=== PATIENT | female | born 1975 | race Caucasian/White ===

== ENCOUNTER → 2017-05-21 07:15 | Outpatient (CLI) | payer OTHER, SELFPAY ==
[2017-05-21 07:48] LABS: Basophils # 0.1 K/mm3 (0-0.2); Basophils % 1.4 % (0.1-2.0); Eosinophils # 0.2 K/mm3 (0.0-0.4); Eosinophils % 3.2 % (0.1-12.0); Hematocrit 43.2 % (37.0-47.0); Hemoglobin 14.5 g/dL (12.2-16.2); Lymphocytes # 2.4 K/mm3 (0.7-4.5); Lymphocytes % 48.6 K/mm3 (10-50); Mean Corpuscular HGB Conc 33.5 g/dL (31.8-35.4); Mean Corpuscular Volume 83.7 fl (81-99); Mean Platelet Volume 7.1 fl (7.4-10.4); Monocytes # 0.2 K/mm3 (0.1-1.0); Monocytes % 4.2 % (1.7-9.3); Neutrophils # 2.1 K/mm3 (1.8-7.8); Neutrophils % 42.6 % (37.0-80.0); Platelet Count 351 K/mm3 (142-424); Red Blood Count 5.16 M/mm3 (4.20-5.40); Red Cell Distribution Width 12.5 % (11.5-17.5)
[2017-05-21 08:39] LABS: Alanine Aminotransferase 58 U/L (12-78); Albumin/Globulin Ratio 1.3 (1.1-1.8); Alkaline Phosphatase 84 U/L (46-116); Anion Gap 9.4 mEq/L (5-15); Aspartate Amino Transferase 29 U/L (15-37); Bilirubin,Total 0.5 mg/dL (0.2-1.0); Blood Urea Nitrogen 10 mg/dL (7-18); Calcium 8.4 mg/dL (8.5-10.1); Carbon Dioxide 30 mmol/L (21.0-32.0); Chloride 103 mmol/L (98-107); Chol/HDL Ratio 3.4 (1-3.5); Cholesterol 192 mg/dL (140-200); Creatinine,Serum 0.58 mg/dL (0.55-1.02); Estimated Glomerular Filt Rate 113 ml/min (>60); GFR (African American) 137 ML/MIN (>60); Globulin 3.2 gm/dl (1.3-3.2); Glucose 101 mg/dL (74-106); HDL Cholesterol 57 mg/dL (29-89); LDL Cholesterol 118 mg/dL (0-130); Potassium 3.4 mmoL/L (3.5-5.1); Sodium 139 mmol/L (136-145); Total Protein,Serum 7.2 gm/dL (6.4-8.2); Triglycerides 87 mg/dL (30-200); VLDL Cholesterol 17 mg/dL (0-40)
[2017-05-22 12:16] LABS: Hep B Surface Ab, Qual Non Reactive (.); Hepatitis C Antibody 0.2 s/co ratio (0.0-0.9)
== END ==
PROVIDERS: PCP Family Medicine; Visit Provider Dermatology
DX: L40.0 Psoriasis vulgaris (principal); Z79.899 Other long term (current) drug therapy; Z92.25 Personal history of immunosuppression therapy
CPT/HCPCS: 36415; 80053; 80061; 85025; 86706; 87380

== ENCOUNTER → 2017-06-30 07:31 | Outpatient (CLI) | payer OTHER, SELFPAY ==
[2017-06-30 07:57] LABS: Alanine Aminotransferase 39 U/L (12-78); Albumin Level 3.6 gm/dL (3.4-5.0); Albumin/Globulin Ratio 1.2 (1.1-1.8); Alkaline Phosphatase 65 U/L (46-116); Anion Gap 10.5 mEq/L (5-15); Aspartate Amino Transferase 16 U/L (15-37); Bilirubin,Total 0.4 mg/dL (0.2-1.0); Blood Urea Nitrogen 10 mg/dL (7-18); Calcium 8.1 mg/dL (8.5-10.1); Carbon Dioxide 31 mmol/L (21.0-32.0); Chloride 105 mmol/L (98-107); Chol/HDL Ratio 3.9 (1-3.5); Cholesterol 184 mg/dL (140-200); Creatinine,Serum 0.68 mg/dL (0.55-1.02); Estimated Glomerular Filt Rate 94 ml/min (>60); GFR (African American) 114 ML/MIN (>60); Globulin 3.1 gm/dl (1.3-3.2); Glucose 117 mg/dL (74-106); HDL Cholesterol 47 mg/dL (29-89); LDL Cholesterol 98 mg/dL (0-130); Potassium 3.5 mmoL/L (3.5-5.1); Sodium 143 mmol/L (136-145); Total Protein,Serum 6.7 gm/dL (6.4-8.2); Triglycerides 197 mg/dL (30-200); VLDL Cholesterol 39 mg/dL (0-40)
[2017-06-30 09:09] LABS: Basophils # 0.1 K/mm3 (0-0.2); Eosinophils # 0.1 K/mm3 (0.0-0.4); Eosinophils % 2.1 % (0.1-12.0); Hematocrit 41.5 % (37.0-47.0); Hemoglobin 13.9 g/dL (12.2-16.2); Lymphocytes # 2.8 K/mm3 (0.7-4.5); Mean Corpuscular HGB Conc 33.4 g/dL (31.8-35.4); Mean Corpuscular Hemoglobin 28.4 pg (27.0-31.2); Mean Platelet Volume 7.7 fl (7.4-10.4); Monocytes # 0.3 K/mm3 (0.1-1.0); Monocytes % 4.9 % (1.7-9.3); Neutrophils # 2.9 K/mm3 (1.8-7.8); Neutrophils % 46.9 % (37.0-80.0); Platelet Count 283 K/mm3 (142-424); Red Blood Count 4.88 M/mm3 (4.20-5.40); Red Cell Distribution Width 13.4 % (11.5-17.5); White Blood Count 6.2 K/mm3 (4.8-10.8)
== END ==
PROVIDERS: Visit Provider Dermatology
DX: L40.0 Psoriasis vulgaris (principal); L85.9 Epidermal thickening, unspecified; L20.9 Atopic dermatitis, unspecified; Z79.899 Other long term (current) drug therapy
CPT/HCPCS: 36415; 80053; 80061; 85025

== ENCOUNTER → 2017-07-18 08:30 | Outpatient (CLI) | payer OTHER, SELFPAY ==
[2017-07-18 08:42] LABS: Basophils # 0.1 K/mm3 (0-0.2); Basophils % 0.7 % (0.1-2.0); Eosinophils # 0.1 K/mm3 (0.0-0.4); Eosinophils % 1.7 % (0.1-12.0); Hematocrit 46.5 % (37.0-47.0); Hemoglobin 15.3 g/dL (12.2-16.2); Lymphocytes # 3.3 K/mm3 (0.7-4.5); Lymphocytes % 41.2 K/mm3 (10-50); Mean Corpuscular Hemoglobin 28.5 pg (27.0-31.2); Mean Corpuscular Volume 86.3 fl (81-99); Mean Platelet Volume 7.2 fl (7.4-10.4); Monocytes # 0.3 K/mm3 (0.1-1.0); Monocytes % 3.8 % (1.7-9.3); Neutrophils # 4.2 K/mm3 (1.8-7.8); Neutrophils % 52.5 % (37.0-80.0); Platelet Count 325 K/mm3 (142-424); Red Blood Count 5.38 M/mm3 (4.20-5.40); Red Cell Distribution Width 12.9 % (11.5-17.5); White Blood Count 7.9 K/mm3 (4.8-10.8)
[2017-07-18 10:14] LABS: Alanine Aminotransferase 48 U/L (12-78); Albumin Level 3.8 gm/dL (3.4-5.0); Albumin/Globulin Ratio 1.2 (1.1-1.8); Alkaline Phosphatase 75 U/L (46-116); Anion Gap 10.8 mEq/L (5-15); Aspartate Amino Transferase 23 U/L (15-37); Bilirubin,Total 0.2 mg/dL (0.2-1.0); Blood Urea Nitrogen 11 mg/dL (7-18); Calcium 8.6 mg/dL (8.5-10.1); Carbon Dioxide 32 mmol/L (21.0-32.0); Chloride 104 mmol/L (98-107); Chol/HDL Ratio 3.3 (1-3.5); Cholesterol 213 mg/dL (140-200); Creatinine,Serum 0.66 mg/dL (0.55-1.02); Estimated Glomerular Filt Rate 97 ml/min (>60); GFR (African American) 118 ML/MIN (>60); Globulin 3.3 gm/dl (1.3-3.2); Glucose 108 mg/dL (74-106); HDL Cholesterol 65 mg/dL (29-89); LDL Cholesterol 131 mg/dL (0-130); Potassium 3.8 mmoL/L (3.5-5.1); Sodium 143 mmol/L (136-145); Thyroid Stimulating Hormone 3.47 uIU/ml (0.358-3.740); Total Protein,Serum 7.1 gm/dL (6.4-8.2); Triglycerides 86 mg/dL (30-200); VLDL Cholesterol 17 mg/dL (0-40)
[2017-07-19 18:30] LABS: Vitamin D 25 Hydroxy 30.9 ng/mL (30.0-100.0)
== END ==
PROVIDERS: Visit Provider Family Medicine
DX: F41.1 Generalized anxiety disorder (principal); K58.1 Irritable bowel syndrome with constipation; L30.1 Dyshidrosis [pompholyx]
CPT/HCPCS: 36415; 80053; 80061; 82652; 84443; 85025

== ENCOUNTER → 2018-07-24 07:43 | Outpatient (CLI) | payer OTHER, SELFPAY ==
--- NOTE | 2018-07-24 07:48 | CT_ITS ---
CT abdomen pelvis wo con CLINICAL INDICATION: ITS.REASON: RT FLANK PAIN ORDERING PHYSICIAN: Nima Posada MD PATIENT AGE: 43 years COMPARISON: None TECHNIQUE: Axial images obtained with sagittal and coronal reformats. All CT scans at the facility use one or more dose reduction, viz: automated exposure control, ma/kV adjustment per patient size (including targeted exams where dose is matched to indication, i.e. head), or iterative reconstruction technique. PROCEDURE: Oral Contrast: None IV Contrast: None . FINDINGS: Lung bases are clear. There has been prior cholecystectomy. The liver, spleen, adrenal glands, and pancreas have an unremarkable unenhanced appearance. No renal or ureteral calculi. No hydronephrosis. Unremarkable appendix. Prior hysterectomy. No intestinal obstruction or free air. There are a few mildly prominent fluid-filled small bowel loops in the pelvis nonspecific but could be seen with enteritis.. No evidence of diverticulitis. No acute bony anomalies. IMPRESSION: 1. Possible enteritis. 2. Otherwise negative CT abdomen pelvis without contrast. No renal or ureteral calculi and unremarkable. Appendix
== END ==
PROVIDERS: PCP Family Medicine; Visit Provider Family Medicine
DX: R10.9 Unspecified abdominal pain (principal)
CPT/HCPCS: 74176

== ENCOUNTER → 2019-07-24 09:27 | Outpatient (CLI) | payer OTHER, SELFPAY ==
[2019-07-24 13:05] LABS: Chloride 98 mmol/L (98-107); Potassium 3.8 mmoL/L (3.5-5.1); Sodium 138 mmol/L (136-145)
[2019-07-24 13:08] LABS: Alanine Aminotransferase 30 U/L (12-78); Albumin Level 4.2 g/dl (3.5-5.0); Albumin/Globulin Ratio 1.7 (1.1-1.8); Alkaline Phosphatase 54 U/L (38-126); Anion Gap 12.8 mEq/L (5-15); Aspartate Amino Transferase 26 U/L (14-36); Bilirubin,Total 0.6 mg/dl (0.2-1.3); Blood Urea Nitrogen 11 mg/dl (7-17); Calcium 8.9 mg/dl (8.4-10.2); Carbon Dioxide 31 mmol/L (22.0-30.0); Cholesterol 217 mg/dl (140-200); Estimated Glomerular Filt Rate 133 ml/min (>60); GFR (African American) 161 ML/MIN (>60); Globulin 2.5 g/dL (1.3-3.2); Glucose 96 mg/dl (74-100); Total Protein,Serum 6.7 g/dl (6.3-8.2); Triglycerides 72 mg/dl (30-150); VLDL Cholesterol 14 mg/dL (0-40)
[2019-07-24 13:09] LABS: Chol/HDL Ratio 3.3 (1-3.5); HDL Cholesterol 66 mg/dl (40-60)
[2019-07-24 13:19] LABS: Direct LDL Cholesterol 130.74 mg/dL (100-129)
== END ==
PROVIDERS: Visit Provider Family Medicine
DX: F41.1 Generalized anxiety disorder (principal); Z13.220 Encounter for screening for lipoid disorders; Z79.899 Other long term (current) drug therapy
CPT/HCPCS: 36415; 80053; 80061; 84443

== ENCOUNTER 2020-07-08 13:31 | Emergency (ER) | payer BC, SELFPAY ==
[2020-07-08 13:40] VITALS: BP 141/77; PULSE 86; RESP 17; TEMP 36.6; O2SAT 98; BMI 30.2
[2020-07-08 14:03] LABS: Apearance,Urine Clear (Clear); Color,Urine Dark Yellow (Yellow)
[2020-07-08 14:04] LABS: Bilirubin,Urine Negative (Negative); Blood, Urine 3+ (Negative); Glucose,Urine (UA) Negative (Negative); Ketones,Urine Negative (Negative); Protein,Urine 3+ (Negative); UTC Leukocyte Esterase,Urine 3+ (Negative); UTC Nitrate,Urine Positive (Negative); Urobilinogen,Urine 1 EU/dl (0.2)
--- NOTE | 2020-07-08 14:15 | HMH.EDUTC ---
[facility] [place] Disposition Clinical Impression: UTI (urinary tract infection) Qualifiers: Urinary tract infection type: site unspecified Hematuria presence: with hematuria Qualified Code(s): N39.0 - Urinary tract infection, site not specified Disposition: Home, Self-Care Condition on Discharge: Good Instructions: Urinary Tract Infection, DI for Urinary Tract Infection (UTI), Phenazopyridine, Nitrofurantoin Additional Instructions: *Increase fluids. Water not Soda or Tea *Start antibiotic immediately and be sure to take as ordered for the FULL length of time although you should start to see improvement over the next 48 hours *Pyridium as needed Remember this medication will turn your urine [place]. This is normal but it will stain what ever it gets on *You should not use Pyridium for more than 48 hours. If so , follow up with your primary physician to review urine culture and ensure that antibiotic is adequate for infection *Be SURE to follow up anytime for new or worsening symptoms with your family doctor. AND in 48 hours for urine culture results with your family doctor, if you do not have a doctor then you may call back to the [facility] for urine culture results and further treatment. We do recommend that you choose and establish care with a Primary Care Physician. AND follow up with them in 10-14 days to repeat UA to ensure infection is resolved and blood no longer present *Be sure to let your PCP know that we sent urine cultures from the [facility] so they can follow up to ensure that you area the on the correct antibiotic Call your doctor office and make appointment for 48 hours (2 days from today) to follow up and get the results of your urine culture and further treatment Straight to the ER if any life threatening symptoms, unable to urinate fever, chills or abdominal pain Return if needed Prescriptions: Nitrofurantoin Monohyd/M-Cryst [Macrobid 100 mg Capsule] 100 mg PO BID 10 Days #20 cap Transmission Status: Received by [id number] Phenazopyridine HCl [Pyridium 200mg Tablet] 200 pow PO TID #6 tab Transmission Status: Received by [id number] Referrals: Nima Posada MD [Primary Care Provider] - As needed Time of Disposition: 14:26 Medical Decision Making - Brad Inquiry Pt receiving controlled substance: No Brad was queried for this patient: No Vital Signs: 07/08/20 13:40 07/08/20 14:40 Temperature 97.8 F 97.8 F Temperature Source Oral Pulse Rate 86 Pulse Rate [Right Brachial] 86 Respiratory Rate 17 17 Blood Pressure 141/77 H Blood Pressure [Right Arm] 141/77 H Blood Pressure Mean [Right Arm] 98 Blood Pressure Source [Right Arm] Automatic Cuff Blood Pressure Position [Right Arm] Sitting 02 Sat by Pulse Oximetry 98 Oxygen Delivery Method Room Air - Lab Data Lab results reviewed: Yes: I reviewed the patient's lab results. Lab Results 07/08/20 13:33: Urine Color Dark yellow, Urine Appearance Clear, Urine pH 7.0, Ur Specific [place] 1.030, Urine Protein 3+, Urine Glucose (UA) Negative, Urine Ketones Negative, Urine Blood 3+, Urine Nitrate Positive A, Urine Bilirubin Negative, Urine Urobilinogen 1, Ur Leukocyte Esterase 3+ A Orders (Tests/Meds): ED MEDICATIONS Discontinued Medications Generic Name Dose Route Start Last Admin Trade Name Freq PRN Reason Stop Dose Admin Ceftriaxone Sodium 1 gm 07/08/20 14:22 07/08/20 14:30 Ceftriaxone 1gm Vial IM 07/08/20 14:23 1 gm ONCE ONE Administration Protocol Lidocaine HCl 0 ml 07/08/20 14:22 07/08/20 14:30 Lidocaine 1% 5ml Pf Vial IM 07/08/20 14:23 2.1 ml ONCE ONE Administration ORDERS Category Date Time Status Urine Culture Stat Micro 07/08/20 13:47 Received Medical Decision Narrative: No rash noted tolerating medication well [facility] [place] HPI - General Stated complaint: Hurting in rght side/hurt to urinate Time Seen by Provider: 07/08/20 14:15 Mode of Arrival: Ambulatory Source of Inform
[2020-07-08 14:40] VITALS: BP 141/77; PULSE 86; RESP 17; TEMP 36.6; O2SAT 98
== END 2020-07-08 14:43 | disposition home or self-care (01) ==
PROVIDERS: Emergency Provider Nurse Practitioner; PCP Family Medicine
DX: N30.00 Acute cystitis without hematuria (principal); B96.20 Unspecified Escherichia coli [E. coli] as the cause of diseases classified elsewhere
CPT/HCPCS: 81003; 87086; 87088; 87186; 96372; 99202; G0463

== ENCOUNTER → 2021-08-29 11:02 | Outpatient (CLI) | payer BC, SELFPAY ==
--- NOTE | 2021-08-29 | CA_ITS ---
FINAL REPORT TECHNIQUE: Right lower extremity venous duplex was performed with augmentation and compression. CLINICAL HISTORY: Patient states she had a sharp shooting pain in her right calf as she came up steps 08/28/21. She noticed this morning that the right calf is swollen. She has tried icing, massage, and elevation with no relief. FINDINGS: Proper flow is seen throughout the deep venous system. There is no evidence of deep venous thrombosis. IMPRESSION: No deep venous thrombosis. Reviewed, Interpreted and Dictated by Glenn Barber MD Transcribed by Carlita Carver Authenticated by Glenn Barber MD on 08/29/2021 01:32:15 PM [facility]
== END ==
PROVIDERS: PCP Family Medicine; Visit Provider Nurse Practitioner Family
DX: M79.661 Pain in right lower leg (principal)
CPT/HCPCS: 93971

== ENCOUNTER → 2021-09-04 10:19 | Outpatient (CLI) | payer BC, SELFPAY ==
--- NOTE | 2021-09-04 10:23 | US_ITS ---
FINAL REPORT CLINICAL HISTORY: LEG PAIN, RIGHT FINDINGS: US EXTREMITY, NONVASCULAR, LIMITED, ANATOMIC SPECIFIC Limited sonographic images were obtained of the right calf. Possible edema in the musculature. No obvious hematoma noted. IMPRESSION: No obvious hematoma. Reviewed, Interpreted and Dictated by Ludwig Cohen III, MD Transcribed by Yrn Venegas Authenticated by Ludwig Cohen III, MD on 09/04/2021 12:21:13 PM [facility]
== END ==
PROVIDERS: PCP Family Medicine; Visit Provider Nurse Practitioner Family
DX: M79.604 Pain in right leg (principal)
CPT/HCPCS: 76882

== ENCOUNTER 2022-02-10 08:12 | Emergency (ER) | payer BC, SELFPAY ==
[2022-02-10 08:27] VITALS: BP 151/79; PULSE 74; RESP 18; TEMP 36.9; O2SAT 96; BMI 29.1
[2022-02-10 08:37] LABS: UTC Strep Screen (Rapid) Negative (Negative)
--- NOTE | 2022-02-10 08:52 | EXP.UTC ---
Discharge Plan Disposition Patient Disposition: Home, Self-Care Condition: Good Prescriptions Prescriptions: New amoxicillin [amoxicillin] 500 mg tablet 500 mg PO TID 10 Days Qty: 30 0RF benzonatate [benzonatate] 100 mg capsule 100 mg PO TIDP PRN (Reason: Cough) Qty: 30 0RF methylprednisolone 4 mg Tablets,Dose Pack 4 mg PO DIRECTED Qty: 21 0RF No Action loratadine-pseudoephedrine 1 EACH tablet extended release 24 hr 1 tab PO DAILY Label Comments: TAKE 1 TABLET BY MOUTH ONCE DAILY FOR 30 DAYS escitalopram oxalate 20 MG tablet 20 mg PO DAILY lubiprostone 24 MCG capsule 24 mcg PO BID phenazopyridine 200 MG tablet 200 pow PO TID Qty: 6 0RF nitrofurantoin monohyd/m-cryst 100 MG capsule 100 mg PO BID 10 Days Qty: 20 0RF Referrals Follow up/Referrals: Nima Posada MD [Primary Care Provider] - See instructions Activity Restrictions/Add. Instructions Additional Instructions/Restrictions: Drink plenty of fluids. Take tylenol or ibuprofen for pain or fever. Take the medications as directed. Follow up with your regular doctor. GO TO THE ER FOR ANY WORSENING SYMPTOMS Clinical Impressions Clinical Impression: Pharyngitis Instructions Patient Instructions: Strep Throat, DI for Strep Throat Discharge ED Provider: Evaristo Patel [facility] General Stated complaint: sore throat, bilateral ear ache Mode of Arrival: Ambulatory Source of Information: Patient Limitations: No Limitations Time Seen by Provider: 02/10/22 08:59 Description of Symptoms (Recalled from Triage Doc. by RN): pt comes in with c/o sore throat and bilateral ear ache. pt states r ear is worse. symptoms begin friday HEENT Symptoms (Recalled from RN notes): Yes Resp Symptoms (Recalled from RN notes): No Skin Symptoms (Recalled from RN notes): No MS Symptoms (Recalled from RN notes): No Functional Status (Recalled from RN notes): n/a History of Present Illness Provider Complaint: She c/o sore throat for the past 2 days. Related Data Home Medications Medication Instructions Recorded Confirmed escitalopram oxalate 20 mg tablet 20 mg PO DAILY Anxiety 07/08/20 07/08/20 loratadine-pseudoephedrine ER 10 1 tab PO DAILY Allergy symptoms 07/08/20 07/08/20 mg-240 mg tablet,extended [id number] lubiprostone 24 mcg capsule 24 mcg PO BID Anxiety 07/08/20 07/08/20 Previous Rx's Medication Instructions Recorded nitrofurantoin 100 mg PO BID 10 days #20 caps 07/08/20 monohydrate/macrocrystals 100 mg capsule phenazopyridine 200 mg tablet 200 pow PO TID #6 tabs 07/08/20 amoxicillin 500 mg tablet 500 mg PO TID 10 days #30 tabs 02/10/22 benzonatate 100 mg capsule 100 mg PO TIDP PRN Cough #30 caps 02/10/22 methylprednisolone 4 mg tablets in 4 mg PO DIRECTED #21 tabs 02/10/22 a dose pack Allergies Allergy/AdvReac Type Severity Reaction Status Date / Time No Known Allergies Allergy Verified 02/10/22 08:30 Worker's Comp Is this a Worker's Comp case?: No PFSH PFS Social History Smoking Status: Never smoker alcohol intake: never current occupational status: other Travel in the last 8 weeks: None ROS Obtained: Yes All systems reviewed & no additional complaints except as documented Constitutional Constitutional: Reports chills and Reports fever(s) Eyes Eyes: Denies eye discharge ENT Ears, Nose, Mouth, and Throat: Reports as per HPI Cardiovascular Cardiovascular: Denies chest pain Respiratory Respiratory: Denies chest congestion and Reports cough Gastrointestinal Gastrointestingal: Reports nausea; Denies abdominal pain, constipation, cramping, diarrhea or vomiting Musculoskeletal Musculoskeletal: Denies arthralgias Integumentary/Breasts Skin/Breast: Denies rash Neurologic Neurologic: Denies paresthesias Physical Exam General General appearance: alert and in no apparent distress Head Head exa
[2022-02-10 09:07] VITALS: BP 151/79; PULSE 74; RESP 18; TEMP 36.9
== END 2022-02-10 09:13 | disposition home or self-care (01) ==
PROVIDERS: Emergency Provider Nurse Practitioner Family; PCP Family Medicine
DX: J02.9 Acute pharyngitis, unspecified (principal)
CPT/HCPCS: 87880; 99212; G0463

== ENCOUNTER 2022-04-30 11:00 | Emergency (ER) | payer BC, SELFPAY ==
[2022-04-30] VITALS (9 sets, daily range): BP systolic 154–172; BP diastolic 74–85; PULSE 60–71; RESP 16–18; TEMP 36.8; O2SAT 96–99; BMI 34.3
--- NOTE | 2022-04-30 11:02 | ECG_ITS ---
APPROVED REPORT Exam: Resting ECG HR:82 bpm ECG Measurements Heart Rate 82 AXES AL 137 P 43 QRSd 108 QRS 42 QT 376 T 23 QTc 415 Conclusion SINUS RHYTHM INDETERMINATE AXIS INCOMPLETE RIGHT BUNDLE BRANCH BLOCK [90+ ms QRS DURATION, TERMINAL R IN V1/V2, 40+ ms S IN I/aVL/V4/V5/V6] BORDERLINE ECG UNCONFIRMED REPORT Electronically signed by : José Arriaga MD 04/30/2022 20:09:03
--- NOTE | 2022-04-30 11:08 | HMH.EDGENADL ---
Discharge Plan Disposition Patient Disposition: Home, Self-Care Condition: Good Prescriptions Prescriptions: New hydrochlorothiazide 25 mg tablet 25 mg PO DAILY Qty: 14 0RF No Action loratadine-pseudoephedrine 1 EACH tablet extended release 24 hr 1 tab PO DAILY Label Comments: TAKE 1 TABLET BY MOUTH ONCE DAILY FOR 30 DAYS escitalopram oxalate 20 MG tablet 20 mg PO DAILY lubiprostone 24 MCG capsule 24 mcg PO BID phenazopyridine 200 MG tablet 200 pow PO TID Qty: 6 0RF nitrofurantoin monohyd/m-cryst 100 MG capsule 100 mg PO BID 10 Days Qty: 20 0RF amoxicillin [amoxicillin] 500 mg tablet 500 mg PO TID 10 Days Qty: 30 0RF benzonatate [benzonatate] 100 mg capsule 100 mg PO TIDP PRN (Reason: Cough) Qty: 30 0RF methylprednisolone 4 mg Tablets,Dose Pack 4 mg PO DIRECTED Qty: 21 0RF Referrals Follow up/Referrals: Provider,Referral, MD [Referring] - See instructions Activity Restrictions/Add. Instructions Additional Instructions/Restrictions: Hydrochlorothiazide as prescribed for blood pressure. Additional instructions for CHEST PAIN: See your physician as soon as possible for further evaluation. Return immediately if worsening chest pain, vomiting, shortness of breath, fever, coughing of blood. Clinical Impressions Clinical Impression: Atypical chest pain, Hypertension Instructions Patient Instructions: DI for Atypical Chest Pain, DI for High Blood Pressure Discharge ED Provider: Fareed Briggs General Adult HPI General Chief complaint: Chest Pain Stated complaint: CP Time Seen by Provider: 04/30/22 11:37 History of Present Illness HPI narrative: States she has not felt well since Friday 4 days ago. Initially thought it might be sinuses. Her blood pressure has been elevated. She has had chest pain going into her left back and down her left arm. She has had shortness of breath. She also thinks symptoms might be related to her anxiety. She does not have a prior history of hypertension, diabetes, or hyperlipidemia. She has a family history of heart disease in mother and grandmother. No prior cardiac work-up. She is a non-smoker. Although not diagnosed with hypertension, she says that her blood pressure has been running high, she had a checked it at work a couple of months ago and it was 176 systolic. They recommended she get follow-up, but she has not yet followed up for that. She has an appointment scheduled for follow-up with Dr. Posada next week. Related Data Home Medications Medication Instructions Recorded Confirmed escitalopram oxalate 20 mg tablet 20 mg PO DAILY Anxiety 07/08/20 07/08/20 loratadine-pseudoephedrine ER 10 1 tab PO DAILY Allergy symptoms 07/08/20 07/08/20 mg-240 mg tablet,extended [id number] lubiprostone 24 mcg capsule 24 mcg PO BID Anxiety 07/08/20 07/08/20 Previous Rx's Medication Instructions Recorded nitrofurantoin 100 mg PO BID 10 days #20 caps 07/08/20 monohydrate/macrocrystals 100 mg capsule phenazopyridine 200 mg tablet 200 pow PO TID #6 tabs 07/08/20 amoxicillin 500 mg tablet 500 mg PO TID 10 days #30 tabs 02/10/22 benzonatate 100 mg capsule 100 mg PO TIDP PRN Cough #30 caps 02/10/22 methylprednisolone 4 mg tablets in 4 mg PO DIRECTED #21 tabs 02/10/22 a dose pack hydrochlorothiazide 25 mg tablet 25 mg PO DAILY #14 tabs 04/30/22 Allergies Allergy/AdvReac Type Severity Reaction Status Date / Time No Known Allergies Allergy Verified 02/10/22 08:30 [facility] Disclaimer: The information contained in this section may have been updated after the patient was seen, as this information can be updated by other users. Social History Smoking Status: Never smoker alcohol intake: never current occupational status: other Travel in the last 8 weeks: None ROS Obtained: Yes Systems reviewed as appropriate & no additional c
--- NOTE | 2022-04-30 11:10 | XR_ITS ---
FINAL REPORT CLINICAL HISTORY: CHEST PAIN COMPARISON: 11/2016 FINDINGS: The heart size is normal. The mediastinum is within normal limits. There is no acute cardiopulmonary process. There is no pleural effusion. There is no pneumothorax. The bony thorax is intact. IMPRESSION: No acute cardiopulmonary process. Reviewed, Interpreted and Dictated by Ludwig Cohen III, MD Transcribed by Yrn Venegas Authenticated and . [facility]
[2022-04-30 11:21] LABS: Chloride 99 mmol/L (98-107); Sodium 139 mmol/L (136-145)
[2022-04-30 11:22] LABS: Potassium 3.5 mmoL/L (3.5-5.1)
[2022-04-30 11:25] LABS: Anion Gap 12.5 mEq/L (5-15); Blood Urea Nitrogen 9 mg/dl (7-17); Calcium 9.9 mg/dl (8.4-10.2); Carbon Dioxide 31 mmol/L (22.0-30.0); Creatinine Clearance Estimated 162 mL/min (50-200); Estimated Glomerular Filt Rate 106 ml/min (>60); GFR (African American) 129 ML/MIN (>60); Glucose 202 mg/dl (74-100)
[2022-04-30 11:27] LABS: Basophils # 0.2 K/mm3 (0-0.2); Basophils % 2.2 % (0.1-2.0); Eosinophils # 0.2 K/mm3 (0.0-0.4); Eosinophils % 2.2 % (0.1-12.0); Hematocrit 44.9 % (37.0-47.0); Hemoglobin 15.2 g/dL (12.2-16.2); Lymphocytes # 3.3 K/mm3 (0.7-4.5); Lymphocytes % 44.4 % (10-50); Mean Corpuscular HGB Conc 33.9 g/dL (31.8-35.4); Mean Corpuscular Hemoglobin 28.9 pg (27.0-31.2); Mean Corpuscular Volume 85.3 fl (81-99); Mean Platelet Volume 7.5 fl (7.4-10.4); Monocytes # 0.2 K/mm3 (0.1-1.0); Monocytes % 3.2 % (1.7-9.3); Neutrophils # 3.5 K/mm3 (1.8-7.8); Neutrophils % 48.1 % (37.0-80.0); Platelet Count 294 K/mm3 (142-424); Red Blood Count 5.27 M/mm3 (4.20-5.40); Red Cell Distribution Width 12.9 % (11.5-17.5); White Blood Count 7.3 K/mm3 (4.8-10.8)
[2022-04-30 11:38] LABS: Troponin I < 0.01 ng/ml (0.00-0.034)
--- NOTE | 2022-04-30 11:44 | CA_ITS ---
APPROVED REPORT EXAM: Comprehensive 2D, Doppler, and color-flow Echocardiogram Forensics Analyst: Silvia Condon RT(R) Ht: 5 ft 4 in Wt: 195lbs BSA: 1.94 BP: 163/85 mmHg Indications: HTN, CP, palpitations, SOB, obesity 2D Dimensions LVOT 1.92 cm (M/F) 1.5-2.5 LVEF (Mendoza's) 60.90 % F: 54 - 74 LV Volume 97.50 mL F: 46 - 106 LV Volume Index 50.26 mL/m2 F: 29 - 61 M-Mode Dimensions RVDd 2.59 cm (0.9-2.6) LA Diam 3.45 cm (1.9-4.0) LVDd 4.54 cm (3.5-5.7) Ao Diam 2.60 cm (2.0-3.7) LVDs 3.18 cm (3.5-5.7) IVSd 0.89 cm (0.6-1.1) PWd 0.81 cm (0.6-1.1) EF (Teich) 57.30% FS 30.00% EDV (Teich) 94.40 mL ESV (Teich) 40.30 mL LV Diastology E Decel Time 150.00 (160-240 msec) E/A Ratio 1.0 MED E' 7.80 (< 7 cm/sec) E'/MED E' Ratio 10.23 (>14) LAT E' 9.70 (<10 cm/sec) E/LAT E' Ratio 8.23 (>14) Mitral Valve MV E Max Abdirashid. 80.00 (40-130 cm/s) MV A Velocity 79.00 (40-130 cm/s) E/A Ratio 1.02 MV Decel. Time 150.00 (160-240 ms) MV PHT 44.00 ms Left Ventricle Left atrium is mildly enlarged, left ventricle is normal size, estimated ejection fraction 55% with no regional wall motion abnormality, diastolic parameters are inconclusive. Right Ventricle Right atrium and right ventricle are normal size and contractility. Aortic Valve Aortic valve is minimally thickened and fibrosed there is no aortic stenosis aortic insufficiency. Mitral Valve Mitral valve is grossly normal, there is trace mitral regurgitation. Tricuspid Valve Tricuspid grossly normal, there is trace tricuspid regurgitation, tricuspid regurgitation jet velocity is inadequate for calculation of the right ventricular systolic pressure. Pulmonic Valve Pulmonic valve is poorly visualized. Great Vessels Aortic root is normal size. Inferior vena cava is normal size with normal inspiratory collapse. Pericardium No significant pericardial effusion noted. Conclusion 1. Normal left ventricular size, estimated ejection fraction 55% with no regional wall motion abnormality, diastolic parameters are inconclusive. 2. Trace mitral and tricuspid regurgitation. 3. No significant pericardial effusion. 4. Inferior vena cava is normal size with normal inspiratory collapse. Electronically signed by : Fausto Frias MD 04/30/2022 16:58:22
--- NOTE | 2022-04-30 11:50 | PC.NURSE ---
Spoke with Silvia regarding ECHO order; pt is in gown.
[2022-04-30 11:55] LABS: Coronavirus 19, PCR Not Detected (NotDetected); Influenza A, PCR Not Detected (NotDetected); Influenza B, PCR Not Detected (NotDetected)
[2022-04-30 12:05] LABS: D-Dimer 0.47 ug/mL (0.0-0.5)
[2022-04-30 12:11] LABS: NT Pro Brain Natriuretic Pep. 62.2 pg/mL (0-125)
--- NOTE | 2022-04-30 12:15 | PC.NURSE ---
1215 PT RESTING IN BED, FAMILY AT BEDSIDE. NO NEEDS AT THIS TIME
--- NOTE | 2022-04-30 13:09 | PC.NURSE ---
2ND TROP SENT TO LAB
[2022-04-30 13:40] LABS: Troponin I < 0.01 ng/ml (0.00-0.034)
--- NOTE | 2022-04-30 13:56 | PC.NURSE ---
ROUNDED ON PT, FAMILY AT BEDSIDE. NO NEEDS VOICED. CALL LIGHT WITHIN REACH
== END 2022-04-30 14:10 | disposition home or self-care (01) ==
PROVIDERS: Emergency Provider Emergency Medicine; PCP Family Medicine
DX: R07.89 Other chest pain (principal); M54.9 Dorsalgia, unspecified; M79.602 Pain in left arm; R05.9 Cough, unspecified; Z20.822 Contact with and (suspected) exposure to COVID-19; I10 Essential (primary) hypertension; I45.10 Unspecified right bundle-branch block; E78.5 Hyperlipidemia, unspecified; E11.9 Type 2 diabetes mellitus without complications; Z79.82 Long term (current) use of aspirin; Z79.899 Other long term (current) drug therapy; Z82.49 Family history of ischemic heart disease and other diseases of the circulatory system
CPT/HCPCS: 71045; 80048; 83880; 84484; 85025; 85378; 93005; 93306; 99285; C9803; U0003; U0005

== ENCOUNTER → 2022-10-10 23:00 | Outpatient (CLI) | payer BC, SELFPAY | PROVIDERS: PCP Student in an Organized Health Care Education/Training Program; Visit Provider Student in an Organized Health Care Education/Training Program | DX: N39.0 Urinary tract infection, site not specified (principal); R31.9 Hematuria, unspecified; B95.2 Enterococcus as the cause of diseases classified elsewhere | CPT/HCPCS: 87086; 87088; 87186 ==

== ENCOUNTER → 2022-10-23 14:46 | Outpatient (CLI) | payer BC, SELFPAY ==
--- NOTE | 2022-10-23 14:46 | CT_ITS ---
FINAL REPORT TECHNIQUE: Axial images through the abdomen and pelvis were performed without contrast. This study was performed with techniques to keep radiation doses as low as reasonably achievable, (ALARA). Individualized dose reduction techniques using automated exposure control or adjustment of mA and/or kV according to the patient's size were employed. CLINICAL HISTORY: R flank pain, hematuria COMPARISON: None FINDINGS: Abdomen: The lung bases are clear. The liver parenchyma is homogeneous. The gallbladder is absent. The spleen, pancreas, adrenals and kidneys are unremarkable. There is no evidence of renal stone or obstruction. Pelvis: There is a low-lying cecum. The urinary bladder is unremarkable. The appendix is unremarkable. There is no pelvic mass or inflammation. IMPRESSION: No evidence of renal stone or obstruction. Reviewed, Interpreted and Dictated by Glenn Barber MD Transcribed by Helen Peguero Authenticated and [facility]
== END ==
PROVIDERS: PCP Student in an Organized Health Care Education/Training Program; Visit Provider Student in an Organized Health Care Education/Training Program
DX: R10.9 Unspecified abdominal pain (principal); R31.9 Hematuria, unspecified
CPT/HCPCS: 74176

== ENCOUNTER 2024-01-07 17:58 | Emergency (ER) | payer BC, SELFPAY ==
[2024-01-07 18:10] VITALS: BP 128/65; PULSE 71; RESP 13; TEMP 36.7; O2SAT 99; BMI 27.8
[2024-01-07 18:19] LABS: Microscopic, Urine URINE MICROSCOPIC (MICROSCOPIC)
[2024-01-07 18:22] LABS: Appearance,Urine CLEAR (Clear); Bilirubin,Urine Negative (Negative); Blood, Urine 1+ (Negative); Color,Urine YELLOW (Yellow); Glucose,Urine (UA) Negative (Negative); Ketones,Urine Negative (Negative); Leukocyte Esterase,Urine 3+ (Negative); Nitrate,Urine Negative (Negative); Protein,Urine Negative (Negative); Urobilinogen,Urine 0.2 EU/dl (0.2)
--- NOTE | 2024-01-07 18:32 | CT_ITS ---
PROCEDURE INFORMATION: Exam: CT Abdomen And Pelvis Without Contrast Exam date and time: 01/07/2024 7:05 PM Age: 48 years old Clinical indication: Abdominal pain; Additional info: Flank pain TECHNIQUE: Imaging protocol: Computed tomography of the abdomen and pelvis without contrast. Radiation optimization: All CT scans at this facility use at least one of these dose optimization techniques: automated exposure control; mA and/or kV adjustment per patient size (includes targeted exams where dose is matched to clinical indication); or iterative reconstruction. COMPARISON: CT ABDOMEN PELVIS WO CON 10/23/2022 2:55 PM FINDINGS: Lungs: Granulomatous calcification in the left lower lobe. Lung bases otherwise clear. Heart: Heart size normal. Coronary arteries: Mild coronary artery calcification. Esophagus: The visualized distal esophagus is largely contracted without gross abnormality. Liver: Normal contour. No mass lesions. No intrahepatic biliary ductal dilatation. Gallbladder and biliary ducts: Prior cholecystectomy with no significant dilatation of the common bile duct. Pancreas: Normal. No inflammatory changes or ductal dilation. Spleen: Normal. No splenomegaly. Adrenal glands: Normal. No adrenal mass. Kidneys and ureters: No acute abnormalities. No hydronephrosis or hydroureter. No urinary tract stones are identified. Stomach and bowel: The stomach is unremarkable. The small bowel is nondilated with no gross abnormality. There is a moderate amount of stool distributed throughout the colon suggesting constipation. Appendix: The appendix is normal in caliber and demonstrates no evidence of appendicitis. Intraperitoneal space: 7 mm chronic probable dropped stone in the cul-de-sac again noted. No peritoneal free fluid or air. Vasculature: No acute process. No abdominal aortic aneurysm. Moderate calcific atherosclerosis. Lymph nodes: No adenopathy. Urinary bladder: Unremarkable as visualized. Reproductive: Prior hysterectomy. Bones/joints: No acute osseous abnormalities. Soft tissues: No acute soft tissue abnormalities. IMPRESSION: 1. There is a moderate amount of stool distributed throughout the colon suggesting constipation. 2. No urolithiasis or hydronephrosis. 3. Additional nonemergent findings detailed above.
[2024-01-07 18:33] LABS: Bacteria,Urine 4+ /lpf; WBC,Urine TNTC #/hpf (0-3)
[2024-01-07] MEDS: LACTATED RINGERS 1000ML 1,000 ML 999 ML IV (18:39)
[2024-01-07] MEDS: KETOROLAC 30MG/ML VIAL 15 MG IV (18:39)
[2024-01-07] MEDS: ACETAMINOPHEN 500MG TAB 1000 MG PO (18:39)
--- NOTE | 2024-01-07 18:41 | ED_ITS ---
Discharge Plan Disposition Patient Disposition: Home, Self-Care Condition: Good Prescriptions Prescriptions: New polyethylene glycol 3350 [Miralax] 17 gram/dose powder 17 g PO DAILY Qty: 510 0RF nitrofurantoin monohyd/m-cryst [Macrobid] 100 mg capsule 100 mg PO BID 5 Days Qty: 10 0RF Rx Instructions: must administer with a meal/food sennosides [senna] 8.6 mg tablet 8.6 mg PO HS PRN (Reason: constipation) Qty: 30 0RF ondansetron HCl 4 mg tablet 4 mg PO Q8H PRN (Reason: nausea and vomiting) 4 Days Qty: 12 0RF phenazopyridine [Pyridium] 200 mg tablet 200 mg PO Q8H PRN (Reason: pain) Qty: 10 0RF fluconazole [Diflucan] 200 mg tablet 200 mg PO ONCE Qty: 1 0RF No Action losartan-hydrochlorothiazide 50-12.5 mg tablet 1 tab PO DAILY escitalopram oxalate 20 MG tablet 20 mg PO DAILY Referrals Follow up/Referrals: Nima Posada MD [Primary Care Provider] - See instructions Activity Restrictions/Add. Instructions Additional Instructions/Restrictions: You were evaluated in the emergency department today. We sent in multiple prescriptions for you, including MiraLAX and senna for bowel cleanout, Zofran to have on hand as needed for nausea and vomiting, Pyridium for as needed use for urinary burning, and an antibiotic. Please complete the full course of antibiotic as prescribed. Take Tylenol and ibuprofen at home as needed for pain. Follow-up closely with your primary care provider. Return to the emergency department for new or worsening symptoms. Clinical Impressions Clinical Impression: UTI (urinary tract infection), Constipation Stand Alone Forms Stand Alone Forms: Work/School Release Instructions Patient Instructions: DI for Urinary Tract Infection (UTI), DI for Constipation Print Language Print Language: Arabic Discharge ED Provider: Ksenia Zaragoza General Adult HPI General Chief complaint: Urogenital-Female Stated complaint: Poss UTI Time Seen by Provider: 01/07/24 18:14 Mode of Arrival: Ambulatory Source of Information: Patient Limitations: No Limitations Description of Symptoms (Recalled from ER Triage Doc. by RN): pt presents to ED with c/o frequent urination. pt reports a little bit of burning. pt reports symptoms began today. History of Present Illness HPI narrative: This patient is a 48-year-old female with history of IBS presenting to the emergency department for evaluation with concern for urinary frequency, dysuria, urinary incontinence, and right flank pain that started today. No fevers, vomiting, or other concerns noted. She does note that she has a history of IBS and when she gets backed up, she has similar symptoms. Related Data Home Medications ?Medication ?Instructions ?Recorded ?Confirmed escitalopram oxalate 20 mg tablet 20 mg PO DAILY Anxiety 07/08/20 01/29/23 losartan 50 mg-hydrochlorothiazide 1 tab PO DAILY 01/15/23 01/29/23 12.5 mg tablet Previous Rx's ?Medication ?Instructions ?Recorded fluconazole 200 mg tablet 200 mg PO ONCE #1 tab 01/07/24 (Diflucan) nitrofurantoin 100 mg PO BID 5 days #10 caps 01/07/24 monohydrate/macrocrystals 100 mg capsule (Macrobid) ondansetron HCl 4 mg tablet 4 mg PO Q8H PRN nausea and 01/07/24 vomiting 4 days #12 tabs phenazopyridine 200 mg tablet 200 mg PO Q8H PRN pain #10 tabs 01/07/24 (Pyridium) polyethylene glycol 3350 17 17 g PO DAILY #510 grams 01/07/24 gram/dose oral powder (Miralax) sennosides 8.6 mg tablet (senna) 8.6 mg PO HS PRN constipation #30 01/07/24 tabs Allergies Allergy/AdvReac Type Severity Reaction Status Date / Time No Known Allergies Allergy Verified 01/29/23 15:44 PFSH [facility] Disclaimer: The information contained in this section may have been updated after the patient was seen, as this information can be updated by other users. Medical History Generalized anxiety disorder Hypertension Pharyngitis UTI (urinary tract infection) Surgical History No significant past surgical history Family History Other No significant family history Social History Smoking Status: Never smoker alcohol intake: never current occupational status: other Travel in the last 8 weeks: None ROS Obtained: Yes All systems reviewed & no additional complaints except as documented Physical Exam General General appearance: alert and in no apparent distress Head Head exam: atraumatic and normocephalic Eye Eye exam: Present normal appearance, PERRL and EOMI ENT ENT exam: Present normal exam, normal oropharynx, mucous membranes moist and normal external ear exam Neck Neck exam: Present normal inspection, full ROM and trachea midline; Absent tenderness Chest Chest inspection: Present normal inspection and symmetric chest wall rise; Absent tenderness Respiratory Respiratory exam: Present normal lung sounds bilaterally; Absent respiratory distress, wheezes, stridor or accessory muscle use Cardiovascular Cardiovascular exam: Present regular rate and normal rhythm Abdominal Exam Abdominal exam: Present soft; Absent distention, tenderness or guarding Extremities Exam Extremities exam: Present normal inspection, full ROM and normal capillary refill; Absent tenderness or edema Back Exam Back exam: Present full ROM and CVA tenderness (R) Neurological Exam Neurological exam: Present alert, oriented X3, CN II-XII intact and normal gait; Absent motor sensory deficit Psychiatric Psychiatric exam: Present normal affect and normal mood Skin Skin exam: Present warm and dry Medical Decision Making Medical Records Medical records reviewed: Yes I reviewed the patient's medical records. Brad Inquiry Pt receiving controlled substance: No Vital Signs: 01/07/24 18:10 01/07/24 20:33 Temperature 98.1 F 98 F Temperature Source Oral Oral Pulse Rate 60 Pulse Rate [Left Radial] 71 Respiratory Rate 13 16 Blood Pressure 140/71 Blood Pressure [Right Arm] 128/65 Blood Pressure Mean [Right Arm] 86 Blood Pressure Source Automatic Cuff Blood Pressure Position Sitting 02 Sat by Pulse Oximetry 99 Oxygen Delivery Method Room Air Room Air Lab Data Lab results reviewed: Yes I reviewed the patient's lab results. Lab Results 01/07/24 18:15: Urine Color Yellow, Urine Appearance Clear, Urine pH 6.0, Ur Specific [place] 1.020, Urine Protein Negative, Urine Glucose (UA) Negative, Urine Ketones Negative, Urine Blood 1+ A, Urine Nitrate Negative, Urine Bilirubin Negative, Urine Urobilinogen 0.2, Ur Leukocyte Esterase 3+ A, Urine RBC 10-20, Urine WBC Tntc, Ur Squamous Epith Cells 5-10, Urine Bacteria 4+ 01/07/24 18:31: WBC 9.2, RBC 4.50, Hgb 13.7, Hct 40.7, MCV 90.4, MCH 30.4, MCHC 33.6, RDW 13.1, Plt Count 262, MPV 8.1, Neut % (Auto) 64.0, Lymph % (Auto) 30.0, [place] % (Auto) 3.2, Eos % (Auto) 1.7, Baso % (Auto) 1.1, Neut # (Auto) 5.9, Lymph # (Auto) 2.8, [place] # (Auto) 0.3, Eos # (Auto) 0.2, Baso # (Auto) 0.1, Sodium 137, Potassium 3.1 L, Chloride 101, Carbon Dioxide 32 H, Anion Gap 7.1, BUN 17, Creatinine 0.60, Estimated Creat Clear 130, Estimated GFR 106, Est GFR ( Amer) 128, Glucose 119 H, Calcium 8.7, Total Bilirubin 0.6, AST 40 H, ALT 45, Alkaline Phosphatase 55, Total Protein 6.9, Albumin 4.3, Globulin 2.6, Albumin/Globulin Ratio 1.7 01/07/24 18:31 01/07/24 18:31 Orders (Tests/Meds): ED MEDICATIONS Discontinued Medications Generic Name Dose Route Start Last Admin Trade Name Freq PRN Reason Stop Dose Admin Acetaminophen 1,000 mg 01/07/24 18:33 01/07/24 18:39 Acetaminophen 500mg Tab PO 01/07/24 18:34 1,000 mg ONCE ONE Administration Lactated Ringer's 1,000 mls @ 999 mls/hr 01/07/24 18:33 01/07/24 18:39 Lactated Ringer's 1000 Ml Bag IV 01/07/24 19:33 999 mls/hr .Q1H1M ONE Administration Ketorolac Tromethamine 15 mg 01/07/24 18:33 01/07/24 18:39 Ketorolac 30mg/Ml Vial IV 01/07/24 18:34 15 mg ONCE ONE Administration Nitrofurantoin Macrocrystals 100 mg 01/07/24 20:04 01/07/24 20:33 Nitrofurantoin 100mg Capsule PO 01/07/24 20:05 100 mg ONCE ONE Administration Potassium Chloride 40 meq 01/07/24 19:28 01/07/24 19:41 Potassium Chloride 20meq Tab PO 01/07/24 19:29 40 meq ONCE ONE Administration ORDERS Category Date Time Status CT abdomen pelvis wo con Stat Cat Scan 01/07/24 18:32 Completed CBC w/Auto Diff [Complete Blood Count Auto Diff] Stat Lab 01/07/24 18:31 Completed CMP [Comprehensive Metabolic Panel] Stat Lab 01/07/24 18:31 Completed UA [Urinalysis and Microscopic] Stat Lab 01/07/24 18:15 Completed Urine Culture Stat Micro 01/07/24 18:15 Received Medical Decision Narrative: In summary, this patient is a 48-year-old female presenting to the Emergency Department for evaluation of right flank pain, urinary frequency, dysuria. Differential diagnoses considered include but are not limited to cystitis, pyelonephritis, ureterolithiasis, colitis, constipation. Ruling out the most morbid conditions drove assessment. On exam, the patient is sitting upright in bed in no acute distress and is very well-appearing. Abdominal exam is benign. Workup included CBC, CMP, urinalysis, CT abdomen and pelvis without IV contrast. She was given a bolus of IV fluids as well as IV Toradol and oral Tylenol for symptomatic improvement. I independently interpreted CT scan prior to the radiologist read and noted no obvious ureteral stone, but she does have constipation. Please see their read for final interpretation. Labs were obtained that demonstrated concerns for urinary tract infection without significant leukocytosis, ABEL, or other concerns. She does have hypokalemia for which oral replacement was ordered. On reassessment, patient had good improvement after administration of interventions above. At this time, I feel that she is appropriate for discharge home with treatment of constipation and urinary tract infection. Prescriptions were sent for antibiotics as well as bowel cleanout. Strict return precautions were given and she was discharged with instructions for close outpatient follow- up. Critical Care Critical Care Time Critical Care Time: No
[2024-01-07 18:44] LABS: Basophils # 0.1 K/mm3 (0-0.2); Basophils % 1.1 % (0.1-2.0); Eosinophils # 0.2 K/mm3 (0.0-0.4); Eosinophils % 1.7 % (0.1-12.0); Hematocrit 40.7 % (37.0-47.0); Hemoglobin 13.7 g/dL (12.2-16.2); Lymphocytes # 2.8 K/mm3 (0.7-4.5); Mean Corpuscular HGB Conc 33.6 g/dL (31.8-35.4); Mean Corpuscular Hemoglobin 30.4 pg (27.0-31.2); Mean Corpuscular Volume 90.4 fl (81-99); Mean Platelet Volume 8.1 fl (7.4-10.4); Monocytes # 0.3 K/mm3 (0.1-1.0); Monocytes % 3.2 % (1.7-9.3); Neutrophils # 5.9 K/mm3 (1.8-7.8); Platelet Count 262 K/mm3 (142-424); Red Cell Distribution Width 13.1 % (11.5-17.5); White Blood Count 9.2 K/mm3 (4.8-10.8)
[2024-01-07 18:51] LABS: Albumin Level 4.3 g/dl (3.5-5.0); Chloride 101 mmol/L (98-107); Potassium 3.1 mmoL/L (3.5-5.1); Sodium 137 mmol/L (136-145)
[2024-01-07 18:54] LABS: Alanine Aminotransferase 45 U/L (12-78); Albumin/Globulin Ratio 1.7 (1.1-1.8); Alkaline Phosphatase 55 U/L (38-126); Anion Gap 7.1 mEq/L (5-15); Aspartate Amino Transferase 40 U/L (14-36); Bilirubin,Total 0.6 mg/dl (0.2-1.3); Blood Urea Nitrogen 17 mg/dl (7-17); Calcium 8.7 mg/dl (8.4-10.2); Carbon Dioxide 32 mmol/L (22.0-30.0); Creatinine Clearance Estimated 130 mL/min (50-200); Estimated Glomerular Filt Rate 106 ml/min (>60); GFR (African American) 128 ML/MIN (>60); Globulin 2.6 g/dL (1.3-3.2); Glucose 119 mg/dl (74-100); Total Protein,Serum 6.9 g/dl (6.3-8.2)
[2024-01-07] MEDS: POTASSIUM CHLORIDE 20MEQ TAB 40 MEQ PO (19:41)
[2024-01-07 20:33] VITALS: BP 140/71; PULSE 60; RESP 16; TEMP 36.6; O2SAT 99
[2024-01-07] MEDS: NITROFURANTOIN 100MG CAPSULE 100 MG PO (20:33)
--- NOTE | 2024-01-08 15:48 | PC.NURSE ---
urine culture discussed with , pt dc with macrobid, ntd
== END 2024-01-07 20:35 | disposition home or self-care (01) ==
LOC: UTC 18:01 → ER 18:08
PROVIDERS: Emergency Provider Emergency Medicine; PCP Family Medicine
DX: N39.0 Urinary tract infection, site not specified (principal); K59.00 Constipation, unspecified; R32 Unspecified urinary incontinence; R10.9 Unspecified abdominal pain; I10 Essential (primary) hypertension
CPT/HCPCS: 74176; 80053; 81001; 85025; 87086; 87088; 87186; 96361; 96374; 99285; J1885; J7120

== ENCOUNTER 2025-03-10 09:34 | Outpatient (CLI) | payer BC, SELFPAY ==
--- OUTSIDE RECORDS SUMMARY | 2023-12-09 05:00 | XMS_ITS ---
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 Equipment Installer Name Role Phone Chuck Posada Primary Care Provider [phone] Allergies Allergen (clinical drug ingredient) Drug/Non Drug Allergy documented on EMR Reaction Allergy Type Onset Date Status lisinopril Lisinopril Cough Drug Allergy Activ e REASON FOR VISIT 6 months Medications Medication SIG (Take, Route, Frequency, Duration) Notes Start Date End Date Status Pen [place] 16 31G X 8 MM as directed once a week 06/05/2023 Acti ve Fiber - as directed Orally A ctive Probiotic - as directed Orally Active Ozempic (2 MG/DOSE) 8 MG/3ML INJECT 2 MG SUBCUTANEOUSLY ONCE A WEEK Active Escitalopram Oxalate 20 MG TAKE 1 TABLET BY MOUTH EVERY DAY FOR 90 DAYS Active Etodolac 400 MG 1 tablet with food O rally Twice a day; Duration: 30 day(s) 11/21/2022 Not-Taking Lisinopril-hydroCHLOROt hiazide 10-12.5 MG 1 tab(s) orally once a day Not-Taking Semaglutide (2 MG/DOSE) 8 MG/3ML as directed Subcutaneous Not -Taking Losartan Potassium-HCTZ 50-12.5 MG 1 tablet Orally Once a day Active Vital Signs Weight 164.4 lbs 12/09/2023 Blood pressure systolic 114 mm Hg 12/09/19 24 Blood pressure diastolic 72 mm Hg 024 Heart Rate 62 /min 12/09/2023 Height 64.25 in 12/09/2023 BMI 28.00 kg/m2 12/09/2023 Encounters Encounter Location Date Provider Diagnosis [facility] [address] [facility] [address] [place] [id number] 12/09/2023 Chuck Posada Type 2 diabetes mellitus E11.9 ; HBP (high blood pressure) I10 and Generalized anxiety disorder F41.1 Assessments Encounter Date Diagnosis (ICD Code) Assessment Notes Treatment Notes Treatment Clinical Notes Section Notes 12/09/2023 Type 2 diabetes mellitus (ICD-10 - E11.9) 12/09/2023 HBP (high blood pressure) (ICD-10 - I10) 12/09/2023 Generalized anxiety disorder (ICD-10 - F41.1) Plan Of Treatment Medication Medication Name Sig Start Date Stop Date Notes Ozempic (2 MG/DOSE) 8 MG/3ML INJECT 2 MG SUBCUTANEOUSLY ONCE A WEEK Escitalopram Oxalate 20 MG TAKE 1 TABLET BY MOUTH EVERY DAY FOR 90 DAYS Losartan Potassium-HCTZ 50-12.5 MG 1 tablet Orally Once a day Next Appt Details Follow Up: 4 Months with lab s, Reason: Provider Name:Chuck Rojas, 04/21/2025 04:00:00 PM, [address] [facility], [address], [place], [id number], Progress Notes * MARNIE MARTINEZDOB: [birth year] (50 yo F)Acc No.[id number]:12/09/2023 Progress Notes Patient: MARVEL KAPADIAITY Provider: Chuck Posada M.D. :1975 A ge:48 Y S ex:Female Date:12/09/2023 Address:[address] [place] [address] [facility], [id number] Subjective: * Chief Complaints: * 1 . 6 months. * HPI: E ndocrinology: Maintenance P t presents today for a 6 month check up. Pt is not fasting today. Pt sts that she is doing well and has no new concerns or complaints. C ardiology: States she tried to wean losartan after last visit but developed lightheadedness and dizziness and therefore resumed her dose. Blood pressure has been running normal since then. * ROS: A LLERGY: no C ough. n o R unny nose. G ASTROENTEROLOGY: no V omiting. n o D iarrhea. U ROLOGY: no D ifficulty urinating. n o B lood in urine. 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 * Surgical History: G allbladder Removal 2003, Partial Hysterectomy 2011, Colonoscopy/ [facility] 2022. * Hospitalization/Major Diagno stic Procedure: P artial Hysterectomy-[facility] 2011, [facility] 01/18/18, [facility] 07/2020. * Family History: F ather: unknown. M other: alive, lung cancer, hypothyroid, Stroke, SD, breast cancer.?Paternal Grand Father: unknown. P aternal Grand Mother: unknown. M aternal Grand Father: alive. M aternal Grand Mother: alive. maternal aunt with breast cancer. * Social History: C URRENT TOBACCO USE: Yes S moking Status: P atient does NOT smoke, F ormer Smoker: Y es, Q uit smokin 010. * Medications: T aking Fiber - Tablet as directed Orally , Taking Probiotic - Tablet Chewable as directed Orally , Taking Pen [place] 5/16 31G X 8 MM Miscellaneous as directed once a week , Taking Losartan Potassium-HCTZ 50-12.5 MG Tablet 1 tablet Orally Once a day , Taking Escitalopram Oxalate 20 MG Tablet TAKE 1 TABLET BY MOUTH EVERY DAY FOR 90 DAYS , Taking Ozempic (2 MG/DOSE) 8 MG/3ML Solution Pen-injector INJECT 2 MG SUBCUTANEOUSLY ONCE A WEEK , Not-Taking Semaglutide (2 MG/DOSE) 8 MG/3ML Solution Pen-injector as directed Subcutaneous , Not-Taking Etodolac 400 MG Tablet 1 tablet with food Orally Twice a day , Not-Taking Lisinopril-hydroCHLOROthiazide 10-12.5 MG Tablet 1 tab(s) orally once a day , Medication List reviewed and reconciled with the patient * Allergies: L isinopril: Cough - Side Effects. Objective: * Vitals: W t:164.4, Temp:98.0, BP:114/72, HR:62, O2 Sat:96% on RA, Nurse:RAMONA, Ht: 64.25, BMI:28.00. * Examination: C ardiology: General Appearance: p leasant, NAD. Weight stable. C arotid upstroke: n ormal, no bruits. H eart sounds: R RR, normal S1, S2. M urmur, click , gallop: n one. E xtremities: n o leg edema. Assessment: * Assessment: 1. T ype 2 diabetes mellitus - E11.9 (Primary) 2 . H BP (high blood pressure) - I10 3 . G eneralized anxiety disorder - F41.1 Plan: * Treatment: 2. H BP (high blood pressure) Continue Losartan Potassium-HCTZ Tablet, 50-12.5 MG, 1 tablet, Orally, Once a day. 3. G eneralized anxiety disorder Continue Escitalopram Oxalate Tablet, 20 MG, TAKE 1 TABLET BY MOUTH EVERY DAY FOR 90 DAYS. ? * Procedure Codes: 9 4760 PULSE OX * Follow Up: 4 Months with labs * Images: Billing Information: * Visit Code: 85135 Office Visit, Est Pt., Level 3. * Procedure Codes: 56181 PULSE OX. * Electronic signature of Chuck Posada MD on 03/14/2025 at 09:45 AM EST Sign off status: Pending * Provider: Chuck Posada M.D. Date: 0 12/09/2023 Generated for Ricardo hadley/Wisam/Serjioitting on: 1 05/14/2024 09:45 AM EST History and Physical Notes * HPI (History of Present Illness) Category Sub-Category Detail Notes Category Not es [facility]. Pt is not fasting today. Pt sts that she is doing well and has no new concerns or complaints Examination Category Sub-Category Detail Notes Category Not es Cardiology Heart sounds: RRR, normal S1, S2 Carotid upstroke: normal, no bruits Extremities: no leg edema Murmur, click , gallop: none General Appearance: pleasant, NAD. Weigh t stable
--- OUTSIDE RECORDS SUMMARY | 2024-02-26 05:00 | XMS_ITS ---
Author Organization [facility] Address [address] [place] [id number] Care Team Providers Care Continuity Tester Name Role Phone Chuck Posada Primary Care Provider [phone] Allergies Allergen (clinical drug ingredient) Drug/Non Drug Allergy documented on EMR Reaction Allergy Type Onset Date Status lisinopril Lisinopril Cough Drug Allergy Activ e Results Component Value Reference Range Notes P-CBC with Diff plus Absolut e Counts Reviewed date:03/02/2024 08:30:13 AM Interpretation: Performing Lab: Notes/Report: Test performed by [facility], [address] , [address], [place] [address] Bret Huynh MD, Cook Helper CLIA: [id number] WBC 4.0 3.8-11.5 K/uL Red Blood Cell Count (RBC) 4.94 3.60-5.30 M/mm 3 Hemoglobin (Hgb) 14.4 11.5-15.5 gm/dL Hematocrit (HCT) 43.2 35.2-46.4 % MCV 87.4 79.0-99.0 fL MCH 29.1 26.9-35.0 pg MCHC 33.3 30.4-34.8 g/dL RDW 39.6 38.6-53.8 fL Platelet Count 211 137-397 K/cumm Neutrophils Automated 28.5 41.0-77.0 % Lymphocytes Automated 54.9 14.0-48.0 % Monocytes Automated 6.2 4.0-13.0 % Eosinophils Automated 2.2 0.0-8.0 % Basophils Automated 1.0 0.0-1.5 % Immature Granulocyte Automated 7.2 0.0-1.0 % Absolute Neutrophil Count 1.1 2.0-8.2 K/uL Absolute Lymphocyte Count 2.2 0.9-3.6 K/uL Absolute Monocyte Count 0.3 0.3-1.0 K/uL Absolute Eosinophil Count 0.1 0.0-0.6 K/uL Absolute Basophil Count 0.0 0.0-0.1 K/uL Absolute Immature Granulocyte 0.29 0.00-0.03 K /uL P-Comprehensive Metabolic Pa norah (CMP) Reviewed date:03/02/2024 08:30:13 AM Interpretation:K+ 3.4 Performing Lab: Notes/Report: Test performed by [facility] [address] [place], [place] [address] [place] , [address], [place] [address] Bret Huynh MD, Cook Helper CLIA: [id number] Sodium 140 135-145 mmol/L Potassium 3.4 3.5-5.3 mmol/L Chloride 103 97-108 mmol/L CO2 30 22-32 mmol/L Glucose 93 65-99 mg/dL BUN 14 6-20 mg/dL Creatinine 0.58 0.50-1.00 mg/dL Calcium 9.0 8.6-10.4 mg/dL eGFR by Creatinine 110 >59 mL/min/1.73m2 Protein 6.6 6.0-8.3 g/dL Albumin 4.4 3.5-5.3 g/dL Alkaline Phosphatase 64 35-121 IU/L ALT (SGPT) 37 <5-47 IU/L AST (SGOT) 30 <5-40 IU/L Bilirubin, Total 0.6 <0.2-1.2 mg/dL A/G Ratio 2.0 1.1-2.5 P-Lipid Panel Reviewed date:03/02/2024 08:30:13 AM Interpretation:chol 204, non-hdl 140 Performing Lab: Notes/Report: Test performed by [facility] [place] , [address], [place] [address] Bret Huynh MD, Cook Helper CLIA: [id number] Cholesterol 204 <200 mg/dL Triglycerides 64 <150 mg/dL HDL Cholesterol 64 >39 mg/dL Cholesterol / HDL Ratio 3.19 0.00-4.44 Ratio Non-HDL Cholesterol 140 <130 mg/dL LDL Cholesterol (Calculation) 127 <130 mg/dL LDL Cholesterol Levels* Less than 100 mg/dL Optimal 100 to 129 mg/dL Near Optimal/ Above Optimal 130 to 159 mg/dL Borderline High 160 to 189 mg/dL High 190 mg/dL and above Very High * Categories as recommended by the 2004 ATPIII guidelines LDL/HDL Ratio 2.0 <3.3 Ratio LDL Cholesterol Patient History Test Date: 11/21/2022 LDL Results: 120 Units: mg/dL % Change: - Test Date: 05/22/2023 LDL Results: 119 Units: mg/dL % Change: 0% Test Date: 02/26/2024 LDL Results: 127 Units: mg/dL % Change: +6% P-TSH Reviewed date:03/02/2024 08:30:13 AM Interpretation:Normal Performing Lab: Notes/Report: Test performed by [facility] [address] [place] [address] , [address], [place] [address] Bret Huynh MD, Cook Helper CLIA: [id number] TSH 2.52 0.43-5.25 mU/L P-Vitamin D, 1, 25 Dihydroxy Reviewed date:03/02/2024 08:30:13 AM Interpretation:84.4 Performing Lab: Notes/Report: Test performed by [facility] [address] [place] [address] , [address], [place] [address] Bret Huynh MD, Cook Helper CLIA: [id number] Vitamin D, 1, 25 Dihydroxy 84.4 19.9-79.3 pg/m L REASON FOR VISIT blood work gets tired Medications Medication SIG (Take, Route, Frequency, Duration) Notes Start Date End Date Status Ozempic (2 MG/DOSE) 8 MG/3ML INJECT 2 MG SUBCUTANEOUSLY ONCE A WEEK Active Lisinopril-hydroCHLOROt hiazide 10-12.5 MG 1 tab(s) orally once a day Not-Taking Etodolac 400 MG 1 tablet with food O rally Twice a day; Duration: 30 day(s) 11/21/2022 Not-Taking Semaglutide (2 MG/DOSE) 8 MG/3ML as directed Subcutaneous Not -Taking Losartan Potassium-HCTZ 50-12.5 MG TAKE 1 TABLET BY MOUTH ONCE DAILY; Duration: 30 Active Pen Pomf[place] 16 31G X 8 MM as directed once a week 06/05/2023 Acti ve Probiotic - as directed Orally Active Ozempic (2 MG/DOSE) 8 MG/3ML INJECT 2 MG SUBCUTANEOUSLY ONCE A WEEK Active Fiber - as directed Orally A ctive Melatonin 5 MG 1 tablet in the even ing Orally Once a day; Duration: 30 day(s) Active Escitalopram Oxalate 20 MG TAKE 1 TABLET BY MOUTH EVERY DAY FOR 90 DAYS Active Losartan Potassium-HCTZ 50-12.5 MG 1 tablet Orally Once a day Active Vital Signs Weight 160.8 lbs 02/26/2024 Blood pressure systolic 120 mm Hg 02/26/20 Blood pressure diastolic 80 mm Hg 024 Heart Rate 70 /min 02/26/2024 Height 64.25 in 02/26/2024 BMI 27.38 kg/m2 02/26/2024 Encounters Encounter Location Date Provider Diagnosis [facility] [address] [facility] [address] [place] [id number] 02/26/2024 Chuck Posada Type 2 diabetes mellitus E11.9 ; HBP (high blood pressure) I10 ; Generalized anxiety disorder F41.1 ; Fatigue R53.83 and Screening, lipid Z13.220 Assessments Encounter Date Diagnosis (ICD Code) Assessment Notes Treatment Notes Treatment Clinical Notes Section Notes 02/26/2024 Type 2 diabetes mellitus (ICD-10 - E11.9) 02/26/2024 HBP (high blood pressure) (ICD-10 - I10) 02/26/2024 Generalized anxiety disorder (ICD-10 - F41.1) Check labs and if noncontributor y, consider change in medication. 02/26/2024 Fatigue (ICD-10 - R53.83) 02/26/2024 Screening, lipid (ICD-10 - Z13.220) Plan Of Treatment Medication Medication Name Sig Start Date Stop Date Notes Ozempic (2 MG/DOSE) 8 MG/3ML INJECT 2 MG SUBCUTANEOUSLY ONCE A WEEK Escitalopram Oxalate 20 MG TAKE 1 TABLET BY MOUTH EVERY DAY FOR 90 DAYS Losartan Potassium-HCTZ 50-12.5 MG 1 tablet Orally Once a day Treatment Notes Assessment Notes Generalized anxiety disorder Check labs and if noncontributory, consider change in medication. Next Appt Details Follow Up: via phone to repo rt test results, Reason: Provider Name:Chuck Rojas, 04/21/2025 04:00:00 PM, [address] [facility] [address], [address], [place], [id number], Progress Notes * MARNIE MARTINEZDOB: [birth year] (50 yo F)Acc No.[id number]:02/26/2024 Progress Notes Patient: MARNIE KAPADIA Provider: Chuck Posada M.D. :1975 A ge:48 Y S ex:Female Date:02/26/2024 Address:[id number] Subjective: * Chief Complaints: * 1 . Blood work gets tired. * HPI: C onstitutional: 48 year old female presents with c/o fatigue for the past month. Pt states she was in the [facility] about mid January and was told her potassium was low. Pt states she was given one dose of potassium that day. Pt states she has not taken any potassium since. She states she sleeps well at night but still feels like she needs a nap during the day. Her is present and denies snoring or apnea symptoms. P sychology: Pt states she has had increased anxiety and would like to discuss increasing the Lexapro. E ndocrinology: She continues on Ozempic and has lost a few more pounds. She denies skipping meals. She is taking a multivitamin supplement. She is also drinking protein drinks as a supplement as well. * ROS: D ERMATOLOGY: no R angela. n o H td. G ASTROENTEROLOGY: no N ausea. n o V omiting. n o D iarrhea.? U ROLOGY: no D ifficulty urinating. n o B lood in urine. 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 * Surgical History: G allbladder Removal 2003, Partial Hysterectomy 2011, Colonoscopy/ [facility] 2022. * Hospitalization/Major Diagno stic Procedure: P artial Hysterectomy[place] 2011, [facility] [place], [facility] [place]. * Family History: F ather: unknown. M other: alive, lung cancer, hypothyroid, Stroke, [place], breast cancer.?Paternal Grand Father: unknown. P aternal Grand Mother: unknown. M aternal Grand Father: alive. M aternal Grand Mother: alive. maternal aunt with breast cancer. * Social History: C URRENT TOBACCO USE: Yes S moking Status: P atient does NOT smoke, F ormer Smoker: Y es, Q uit smokin 010. * Medications: T aking Melatonin 5 MG Tablet 1 tablet in the evening Orally Once a day , Taking Fiber - Tablet as directed Orally , Taking Probiotic - Tablet Chewable as directed Orally , Taking Pen Pomfret /16 31G X 8 MM Miscellaneous as directed once a week , Taking Escitalopram Oxalate 20 MG Tablet TAKE 1 TABLET BY MOUTH EVERY DAY FOR 90 DAYS , Taking Ozempic (2 MG/DOSE) 8 MG/3ML Solution Pen-injector INJECT 2 MG SUBCUTANEOUSLY ONCE A WEEK , Taking Losartan Potassium-HCTZ 50-12.5 MG Tablet TAKE 1 TABLET BY MOUTH ONCE DAILY , Not-Taking Semaglutide (2 MG/DOSE) 8 MG/3ML Solution Pen-injector as directed Subcutaneous , Not-Taking Etodolac 400 MG Tablet 1 tablet with food Orally Twice a day , Not-Taking Lisinopril-hydroCHLOROthiazide 10-12.5 MG Tablet 1 tab(s) orally once a day , Medication List reviewed and reconciled with the patient * Allergies: L isinopril: Cough - Side Effects. Objective: * Vitals: W t:160.8, Temp:98.3, BP:120/80, HR:70, Nurse:YIFAN, Ht: 64.25, BMI:27.38. * Examination: C ardiology: General Appearance: p leasant, NAD. Affect is good.?Carotid upstroke: n ormal, no bruits. H eart sounds: R RR, normal S1, S2. M urmur, click , gallop: n one. E xtremities: n o leg edema. Assessment: * Assessment: 1. T ype 2 diabetes mellitus - E11.9 (Primary) 2 . H BP (high blood pressure) - I10 3 . G eneralized anxiety disorder - F41.1 4 . F atigue - R53.83 5 . S creening, lipid - Z13.220 Plan: * Treatment: 2. H BP (high blood pressure) Continue Losartan Potassium-HCTZ Tablet, 50-12.5 MG, 1 tablet, Orally, Once a day. L AB: P-Comprehensive Metabolic Panel (CMP) (Collection Date & Time - 02/26/2024 09:55 AM) K + 3.4 Value Reference Range A /G Ratio 2.0 1.1-2.5 - * A lbumin 4.4 3.5-5.3 - g/dL * A lkaline Phosphatase 64 35-121 - IU/L * A LT (SGPT) 37 <5-47 - IU/L * A ST (SGOT) 30 <5-40 - IU/L * B ilirubin, Total 0.6 <0.2-1.2 - mg/dL * B UN 14 6-20 - mg/dL * C alcium 9.0 8.6-10.4 - mg/dL * C hloride 103 97-108 - mmol/L * C O2 30 22-32 - mmol/L * C reatinine 0.58 0.50-1.00 - mg/dL * G lucose 93 65-99 - mg/dL * P otassium 3.4 L 3.5-5.3 - mmol/L * S odium 140 135-145 - mmol/L * P rotein 6.6 6.0-8.3 - g/dL * e GFR by Creatinine 110 >59 - mL/min/1.73m2 * Chuck Posada 03/02/2024 8:30:05 AM >See phone encounter 3.?Generalized anxiety disorder? Continue Escitalopram Oxalate Tablet, 20 MG, TAKE 1 TABLET BY MOUTH EVERY DAY FOR 90 DAYS.?LAB: P-TSH (Collection Date & Time - 02/26/2024 09:55 AM)?Normal* Value Reference Range T SH 2.52 0.43-5.25 - mU/L * Chuck Posada 03/02/2024 8:30:05 AM >See phone encounter Notes: Check labs and if noncontributory, consider change in medication.?? 4.?Fatigue?LAB: P-CBC with Diff plus Absolute Counts (Collection Date & Time - 02/26/2024 09:55 AM)* Value Reference Range A bsolute Basophil Count 0.0 0.0-0.1 - K/uL * A bsolute Eosinophil Count 0.1 0.0-0.6 - K/uL * A bsolute Immature Granulocyte 0.29 H 0.00-0.03 - K/uL * A bsolute Lymphocyte Count 2.2 0.9-3.6 - K/uL * A bsolute Monocyte Count 0.3 0.3-1.0 - K/uL * A bsolute Neutrophil Count 1.1 L 2.0-8.2 - K/uL * B asophils Automated 1.0 0.0-1.5 - % * E osinophils Automated 2.2 0.0-8.0 - % * H ematocrit (HCT) 43.2 35.2-46.4 - % * H emoglobin (Hgb) 14.4 11.5-15.5 - gm/dL * I mmature Granulocyte Automated 7.2 H 0.0-1.0 - % * L ymphocytes Automated 54.9 H 14.0-48.0 - % * M CH 29.1 26.9-35.0 - pg * M CHC 33.3 30.4-34.8 - g/dL * M CV 87.4 79.0-99.0 - fL * M onocytes Automated 6.2 4.0-13.0 - % * P latelet Count 211 137-397 - K/cumm * R ed Blood Cell Count (RBC) 4.94 3.60-5.30 - M/ mm3 * R DW 39.6 38.6-53.8 - fL * N eutrophils Automated 28.5 L 41.0-77.0 - % * W BC 4.0 3.8-11.5 - K/uL * Chuck Posada 03/02/2024 8:30:05 AM >See phone encounter ?LAB: P-TSH (Collection Date & Time - 02/26/2024 09:55 AM)?Normal* Value Reference Range T SH 2.52 0.43-5.25 - mU/L * Chuck Posada 03/02/2024 8:30:05 AM >See phone encounter ?LAB: P-Vitamin D, 1, 25 Dihydroxy (Collection Date & Time - 02/26/2024 09:55 AM)?84.4* Value Reference Range V itamin D, 1, 25 Dihydroxy 84.4 H 19.9-79.3 - pg /mL * Swetha,Chuck Briceño 03/02/2024 8:30:05 AM >See phone encounter 5.?Screening, lipid?LAB: P-Lipid Panel (Collection Date & Time - 02/26/2024 09:55 AM)?chol 204, non-hdl 140* Value Reference Range C holesterol / HDL Ratio 3.19 0.00-4.44 - Ratio * C holesterol 204 H <200 - mg/dL * H DL Cholesterol 64 >39 - mg/dL * L DL Cholesterol (Calculation) 127 <130 - mg/d L * L DL/HDL Ratio 2.0 <3.3 - Ratio * N on-HDL Cholesterol 140 H <130 - mg/dL * T riglycerides 64 <150 - mg/dL * SwethaChuck 03/02/2024 8:30:05 AM >See phone encounter * Follow Up: v ia phone to report test results * Images: Billing Information: * Visit Code: 72052 Office Visit, Est Pt., Level 4. * Procedure Codes: * Electronic signature of Chuck Posada MD on 03/14/2025 at 09:45 AM EST Sign off status: Pending * Provider: Chuck Posada M.D. Date: Generated for Ricardo hadley/Wisam/Edie on: 05/14/2024 09:45 AM EST History and Physical Notes * HPI (History of Present Illness) Category Sub-Category Detail Notes Category Not es Constitutional fatigue for the past fri. Pt states she was in the [facility] about mid January and was told her potassium was low. Pt states she was given one dose of potassium that day. Pt states she has not taken any potassium since She states she sleeps well at night but still feels like she needs a nap during the day. Her is present and denies snoring or apnea symptoms. Examination Category Sub-Category Detail Notes Category Not es Cardiology Heart sounds: RRR, normal S1, S2 Carotid upstroke: normal, no bruits Extremities: no leg edema Murmur, click , gallop: none General Appearance: pleasant, NAD. Affec t is good
--- OUTSIDE RECORDS SUMMARY | 2024-04-22 09:45 | XMS_ITS ---
Author Organization [facility] Address [address] [facility] [address] [place] [id number] Care Team Providers Care Otorhinolaryngologist Name Role Phone Chuck Posada Primary Care Provider Allergies Allergen (clinical drug ingredient) Drug/Non Drug Allergy documented on EMR Reaction Allergy Type Onset Date Status lisinopril Lisinopril Cough Drug Allergy Activ e Results Component Value Reference Range Notes P-Potassium Reviewed date:04/23/2024 03:10:57 PM Interpretation:3.7 Performing Lab: Notes/Report: Test performed by [facility], [address] , [address], [place] [address] Bret Huynh MD, Office Helper CLIA: [id number] Potassium 3.7 3.5-5.3 mmol/L REASON FOR VISIT 4 month f/u Medications Medication SIG (Take, Route, Frequency, Duration) Notes Start Date End Date Status Lisinopril-hydroCHLOROt hiazide 10-12.5 MG 1 tab(s) orally once a day Not-Taking DULoxetine HCl 30 MG 1 capsule Orally On ce a day 03/02/2024 Active Potassium Chloride ER 10 MEQ 1 capsule with food Orally Once a day 03/02/2024 Active Semaglutide (2 MG/DOSE) 8 MG/3ML as directed Subcutaneous Not -Taking Etodolac 400 MG 1 tablet with food O rally Twice a day; Duration: 30 day(s) 11/21/2022 Not-Taking Losartan Potassium-HCTZ 50-12.5 MG 1 tablet Orally Once a day Active Probiotic - as directed Orally Active Pen [place] 5/16 31G X 8 MM as directed once a week 06/05/2023 Acti ve Ozempic (2 MG/DOSE) 8 MG/3ML INJECT 2 MG SUBCUTANEOUSLY ONCE A WEEK Active Fiber - as directed Orally A ctive Melatonin 5 MG 1 tablet in the even ing Orally Once a day; Duration: 30 day(s) Active Problems Problem Type SNOMED Code ICD Code Onset Dates Problem Status W/U Status Risk Notes Problem Hyperlipidemia due to type 2 diabetes mellitus (disorder) ([id number]) Hyperlipidemia associated with type 2 diabetes mellitus (E11.69) Active confirmed Vital Signs Weight 161.8 lbs 04/22/2024 Blood pressure systolic 124 mm Hg 04/22/20 24 Blood pressure diastolic 76 mm Hg 024 Heart Rate 70 /min 04/22/2024 Height 64.25 in 04/22/2024 BMI 27.55 kg/m2 04/22/2024 Encounters Encounter Location Date Provider Diagnosis [facility] [address] [facility] [address] [facility] [address] [place] [id number] 04/22/2024 Chuck Posada Hypokalemia E87.6 ; HBP (high blood pressure) I10 ; Generalized anxiety disorder F41.1 and Type 2 diabetes mellitus E11.9 Assessments Encounter Date Diagnosis (ICD Code) Assessment Notes Treatment Notes Treatment Clinical Notes Section Notes 04/22/2024 Hypokalemia (ICD-10 - E87.6) 04/22/2024 HBP (high blood pressure) (ICD-10 - I10) 04/22/2024 Generalized anxiety disorder (ICD-10 - F41.1) 04/22/2024 Type 2 diabetes mellitus (ICD-10 - E11.9) Plan Of Treatment Medication Medication Name Sig Start Date Stop Date Notes DULoxetine HCl 30 MG 1 capsule Orally Once a day Potassium Chloride ER 10 MEQ 1 capsule with food Orally Once a day 03/02/2024 Losartan Potassium-HCTZ 50-12.5 MG 1 tablet Orally Once a day Ozempic (2 MG/DOSE) 8 MG/3ML INJECT 2 MG SUBCUTANEOUSLY ONCE A WEEK Next Appt Details Follow Up: 3 Months, Reason: Provider Name:Chuck Rojas 04/21/2025 04:00:00 PM, [address] [facility], [address], [place], [id number], Progress Notes * MARNIE MARTINEZDOB: [birth year] (50 yo F)Acc No.[id number]:04/22/2024 Progress Notes Patient: MARNIE KAPADIA Provider: Chuck Posada M.D. :1975 A ge:49 Y S ex:Female Date:04/22/2024 Address:[address] [place] [address] [place], [id number] Subjective: * Chief Complaints: * 1 . 4 month f/u. * HPI: C ardiology: She is here for repeat blood work to follow-up on her hypokalemia. She feels the potassium supplement has helped with her muscle cramps and energy. H PI: Patient is here today for P t sts that she needs refills sent to [facility] in [place]. Pt sts that she is switching from [facility], [place]. She. * ROS: D ERMATOLOGY: no R angela. n o H td. G ASTROENTEROLOGY: no N ausea. n o V omiting. n o D iarrhea.? U ROLOGY: no D ifficulty urinating. n o B lood in urine. 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 * Surgical History: G allbladder Removal 2003, Partial Hysterectomy 2011, Colonoscopy/ [facility] 2022. * Hospitalization/Major Diagno stic Procedure: P artial Hysterectomy-[facility] 2011, [facility] 01/18[facility]18, [facility] 07[facility]. * Family History: F ather: unknown. M other: alive, lung cancer, hypothyroid, Stroke, [place], breast cancer.?Paternal Grand Father: unknown. P aternal Grand Mother: unknown. M aternal Grand Father: alive. M aternal Grand Mother: alive. maternal aunt with breast cancer. * Social History: C URRENT TOBACCO USE: Yes S moking Status: P atient does NOT smoke, F ormer Smoker: Y es, Q uit smokin 010. * Medications: T aking Losartan Potassium-HCTZ 50-12.5 MG Tablet 1 tablet Orally Once a day , Taking Melatonin 5 MG Tablet 1 tablet in the evening Orally Once a day , Taking Fiber - Tablet as directed Orally , Taking Probiotic - Tablet Chewable as directed Orally , Taking Pen [place] 5/16 31G X 8 MM Miscellaneous as directed once a week , Taking Potassium Chloride ER 10 MEQ Capsule Extended Release 1 capsule with food Orally Once a day , Taking DULoxetine HCl 30 MG Capsule Delayed Release Particles 1 capsule Orally Once a day , Taking Ozempic (2 MG/DOSE) 8 MG/3ML [...] - Side Effects. Objective: * Vitals: W t:161.8, Temp:97.7, BP:124/76, HR:70, Nurse:RAMONA, Ht: 64.25, BMI:27.55. Assessment: * Assessment: 1. H ypokalemia - E87.6 (Primary) 2 . H BP (high blood pressure) - I10 3 . G eneralized anxiety disorder - F41.1 4 . T ype 2 diabetes mellitus - E11.9 Plan: * Treatment: Value Reference Range P otassium 3.7 3.5-5.3 - mmol/L * Chuck Posada 04/23/2024 3:10:49 PM > See phone encounter 2.?HBP (high blood pressure)? Refill Losartan Potassium-HCTZ Tablet, 50-12.5 MG, 1 tablet, Orally, Once a day, 90, Refills 1; Refill Potassium Chloride ER Capsule Extended Release, 10 MEQ, 1 capsule with food, Orally, Once aday, 90, Refills 1.??3.?Generalized anxiety disorder? Refill DULoxetine HCl Capsule Delayed Release Particles, 30 MG, 1 capsule, Orally, Once a day, 90, Refills 1.??4.?Type 2 diabetes mellitus? Refill Ozempic (2 MG/DOSE) Solution Pen-injector, 8 MG/3ML, INJECT 2 MG SUBCUTANEOUSLY ONCE A WEEK,3 Milliliter, Refills 2.?? * Follow Up: 3 Months * Images: Billing Information: * Visit Code: 48019 Office Visit, Est Pt., Level 4. * Procedure Codes: * Electronic signature of Chuck Posada MD on 03/14/2025 at 09:46 AM EST Sign off status: Pending * Provider: Chuck Posada M.D. Date: 06/23/2023 Generated for Ricardo hadley/Wisam/Edie on: 05/14/2024 09:46 AM EST History and Physical Notes * HPI (History of Present Illness) Category Sub-Category Detail Notes Category Not es HPI Patient is here today for Pt sts that she needs refills sent to [facility] in [place]. Pt sts that she is switching from [facility], [place]. She
--- OUTSIDE RECORDS SUMMARY | 2024-10-21 11:00 | XMS_ITS ---
Author Organization [facility] Address [address] [facility] [address] [place] [id number] Care Team Providers Care Development Associate Name Role Phone Chuck Posada Primary Care Provider Allergies Allergen (clinical drug ingredient) Drug/Non Drug Allergy documented on EMR Reaction Allergy Type Onset Date Status lisinopril Lisinopril Cough Drug Allergy Activ e Results Component Value Reference Range Notes P-Comprehensive Metabolic Pa norah (CMP) Reviewed date:10/27/2024 04:56:36 PM Interpretation:normal Performing Lab: Notes/Report: Test performed by [facility], [address] , [address], [place] [address] Bret Huynh MD, Rodent Exterminator CLIA: [id number] Sodium 141 135-145 mmol/L Potassium 3.5 3.5-5.3 mmol/L Chloride 104 97-108 mmol/L CO2 28 22-32 mmol/L Glucose 96 65-99 mg/dL BUN 15 6-20 mg/dL Creatinine 0.57 0.50-1.00 mg/dL Calcium 9.0 8.6-10.4 mg/dL eGFR by Creatinine 110 >59 mL/min/1.73m2 Protein 6.2 6.0-8.3 g/dL Albumin 4.1 3.5-5.3 g/dL Alkaline Phosphatase 72 35-121 IU/L ALT (SGPT) 41 <5-47 IU/L AST (SGOT) 27 <5-40 IU/L Bilirubin, Total 0.4 <0.2-1.2 mg/dL A/G Ratio 2.0 1.1-2.5 P-Lipid Panel Reviewed date:10/27/2024 04:56:36 PM Interpretation:LDL 107 Performing Lab: Notes/Report: Test performed by [facility] [address] , [address], [place] [address] Bret Huynh MD, Rodent Exterminator CLIA: [id number] Cholesterol 177 <200 mg/dL Triglycerides 67 <150 mg/dL HDL Cholesterol 57 >39 mg/dL Cholesterol / HDL Ratio 3.11 0.00-4.44 Ratio Non-HDL Cholesterol 120 <130 mg/dL LDL Cholesterol (Calculation) 107 <130 mg/dL LDL Cholesterol Levels* Less than 100 mg/dL Optimal 100 to 129 mg/dL Near Optimal/ Above Optimal 130 to 159 mg/dL Borderline High 160 to 189 mg/dL High 190 mg/dL and above Very High * Categories as recommended by the 2004 ATPIII guidelines LDL/HDL Ratio 1.9 <3.3 Ratio LDL Cholesterol Patient History Test Date: 05/22/2023 LDL Results: 119 Units: mg/dL % Change: 0% Test Date: 02/26/2024 LDL Results: 127 Units: mg/dL % Change: +6% Test Date: 10/22/2024 LDL Results: 107 Units: mg/dL % Change: -15% REASON FOR VISIT 6 months, Needs labs, mammogram, & shingles vaccine Medications Medication SIG (Take, Route, Frequency, Duration) Notes Start Date End Date Status Pen [place] 09/17 31G X 8 MM as directed once a week 06/05/2023 Acti ve Potassium Chloride ER 10 MEQ 1 capsule with food Orally Once a day Active Probiotic - as directed Orally Active DULoxetine HCl 30 MG Take 1 capsule by devang diane once daily Active Fiber - as directed Orally A ctive Etodolac 400 MG 1 tablet with food Orally Twice a day; Duration: 30 day(s) 11/21/2022 Not-Taking Lisinopril-hydroCHLOROth iazide 10-12.5 MG 1 tab(s) orally once a day Not-Taking Losartan Potassium-HCTZ 50-12.5 MG 1 tablet Orally Once a day Active Melatonin 5 MG 1 tablet in the even ing Orally Once a day; Duration: 30 day(s) Active Semaglutide (2 MG/DOSE) 8 MG/3ML as directed Subcutaneous Not -Taking Vital Signs Weight 154.4 lbs 10/21/2024 Blood pressure systolic 120 mm Hg 10/22/19 25 Blood pressure diastolic 68 mm Hg 025 Heart Rate 74 /min 10/21/2024 Height 64.25 in 10/21/2024 BMI 26.29 kg/m2 10/21/2024 Encounters Encounter Location Date Provider Diagnosis [facility] [address] [facility] [address] [place] [id number] 10/21/2024 Chuck Posada Dyslipidemia E78.5 ; HBP (high blood pressure) I10 ; Prediabetes R73.03 ; Encounter for weight management Z76.89 ; Generalized anxiety disorder F41.1 and BMI 26.0-26.9,adult Z68.26 Assessments Encounter Date Diagnosis (ICD Code) Assessment Notes Treatment Notes Treatment Clinical Notes Section Notes 10/21/2024 Dyslipidemia (ICD-10 - E78.5) 10/21/2024 HBP (high blood pressure) (ICD-10 - I10) 10/21/2024 Prediabetes (ICD-10 - R73.03) 10/21/2024 Encounter for weight management (ICD-10 - Z76.89) Discussed importance of maintaining diet and exercise regimen while going off the Ozempic 10/21/2024 Generalized anxiety disorder (ICD-10 - F41.1) 10/21/2024 BMI 26.0-26.9,adult (ICD-10 - Z68.26) Plan Of Treatment Medication Medication Name Sig Start Date Stop Date Notes Potassium Chloride ER 10 MEQ 1 capsule with food Orally Once a day DULoxetine HCl 30 MG Take 1 capsule by m outh once daily Ozempic (2 MG/DOSE) 8 MG/3ML INJECT 2 MG SUBCUTANEOUSLY ONCE A WEEK Subcutaneous once weekly Losartan Potassium-HCTZ 50-12.5 MG 1 tablet Orally Once a day Treatment Notes Assessment Notes Encounter for weight management Discusse d importance of maintaining diet and exercise regimen while going off the Ozempic Next Appt Details Follow Up: 6 Months, Reason: Provider Name:Chuck Rojas, 04/21/2025 04:00:00 PM, [address] [facility], [address] , [place], [id number], Progress Notes * MARNIE MARTINEZDOB: [birth year] (50 yo F)Acc No.[id number]:10/21/2024 Progress Notes Patient: MARNIE KAPADIA Provider: Chuck Posada M.D. :1975 A ge:49 Y S ex:Female Date:10/21/2024 Address:[address] [place] [address] [facility] [id number] Subjective: * Chief Complaints: * 1 . 6 months. 2. Needs labs, mammogram, & shingles vaccine. * HPI: H PI: 49 year old female presents with c/o Patient is here today for?Pt is here today for a 6 month check up. Pt sts she is doing well and has no concerns at this time. C onstitutional: She is at her goal weight and is considering going off the Ozempic. * ROS: D ERMATOLOGY: no R angela. n o H td. G ASTROENTEROLOGY: no N ausea. n o V omiting. n o D iarrhea.? U ROLOGY: no D ifficulty urinating. n o B lood in urine. 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 * Surgical History: G allbladder Removal 2003, Partial Hysterectomy 2011, Colonoscopy/ [facility] 2022. * Hospitalization/Major Diagno stic Procedure: P artial Hysterectomy-[facility] 2011, [facility] 01/18/18, [facility] 07/2020. * Family History: F ather: unknown. M other: alive, lung cancer, hypothyroid, Stroke, [place], breast cancer.?Paternal Grand Father: unknown. P aternal [...] Chewable as directed Orally , Taking Pen [place] 09/17 31G X 8 MM Miscellaneous as directed once a week , Taking Losartan Potassium-HCTZ 50-12.5 MG Tablet 1 tablet Orally Once a day , Taking Ozempic (2 MG/DOSE) 8 MG/3ML Solution Pen-injector INJECT 2 MG SUBCUTANEOUSLY ONCE A WEEK Subcutaneous once weekly , Taking DULoxetine HCl 30 MG Capsule Delayed Release Particles Take 1 capsule by mouth once daily , Taking Potassium Chloride ER 10 MEQ Capsule Extended Release 1 capsule with food Orally Once a day , Not-Taking Semaglutide (2 MG/DOSE) 8 MG/3ML Solution Pen-injector as directed Subcutaneous , Not-Taking Etodolac 400 MG Tablet 1 tablet with food Orally Twice a day , Not- Taking Lisinopril-hydroCHLOROthiazide 10-12.5 MG Tablet 1 tab(s) orally once a day , Medication List reviewed and reconciled with the patient * Allergies: L isinopril: Cough - Side Effects. Objective: * Vitals: W t: 154.4, Temp: 97.7, BP: 120/68, HR: 74, Nurse: [facility], Ht: 64.25, BMI:26.29. * Examination: C ardiology: General Appearance: p leasant, NAD. Affect is good.?Carotid upstroke: n ormal, no bruits. H eart sounds: R RR, normal S1, S2. M urmur, click , gallop: n one. E xtremities: n o leg edema. Assessment: * Assessment: 1. D yslipidemia - E78.5 (Primary) 2 . H BP (high blood pressure) - I10? 3. P rediabetes - R73.03 4 . E ncounter for weight management - Z76.89 5 . G eneralized anxiety disorder - F41.1 6 . B UT 26.0-26.9,adult - Z68.26 Plan: * Treatment: Value Reference Range C holesterol / HDL Ratio 3.11 0.00-4.44 - Ratio * C holesterol 177 <200 - mg/dL * H DL Cholesterol 57 >39 - mg/dL * L DL Cholesterol (Calculation) 107 <130 - mg/d L * L DL/HDL Ratio 1.9 <3.3 - Ratio * N on-HDL Cholesterol 120 <130 - mg/dL * T riglycerides 67 <150 - mg/dL * Chuck Posada 10/27/2024 04:56:24 PM EDT > See phone encounter 2.?HBP (high blood pressure)? Continue Losartan Potassium-HCTZ Tablet, 50-12.5 MG, 1 tablet, Orally, Once a day;?Continue Potassium Chloride ER Capsule Extended Release, 10 MEQ, 1 capsule with food, Orally, Once a day.?LAB: P-Comprehensive Metabolic Panel (CMP) (Collection Date & Time - 10/22/2024 08:37 AM)?normal* Value Reference Range A /G Ratio 2.0 1.1-2.5 - * A lbumin 4.1 3.5-5.3 - g/dL * A lkaline Phosphatase 72 35-121 - IU/L * A LT (SGPT) 41 <5-47 - IU/L * A ST (SGOT) 27 <5-40 - IU/L * B ilirubin, Total 0.4 <0.2-1.2 - mg/dL * B UN 15 6-20 - mg/dL * C alcium 9.0 8.6-10.4 - mg/dL * C hloride 104 97-108 - mmol/L * C O2 28 22-32 - mmol/L * C reatinine 0.57 0.50-1.00 - mg/dL * G lucose 96 65-99 - mg/dL * P otassium 3.5 3.5-5.3 - mmol/L * S odium 141 135-145 - mmol/L * P rotein 6.2 6.0-8.3 - g/dL * e GFR by Creatinine 110 >59 - mL/min/1.73m2 * Chuck Posada 10/27/2024 04:56:24 PM EDT > See phone encounter 3.?Encounter for weight management? Stop Ozempic (2 MG/DOSE) Solution Pen-injector, 8 MG/3ML, INJECT 2 MG SUBCUTANEOUSLY ONCE A WEEK, Subcutaneous, once weekly.?? Notes: Discussed importance of maintaining diet and exercise regimen while going off the Ozempic ?4.?Generalized anxiety disorder? Continue DULoxetine HCl Capsule Delayed Release Particles, 30 MG, Take 1 capsule by mouth once daily.?? * Procedure Codes: G 8420 BMI<30 AND >=22 CALC & DOCU, G8950 PREHTN/HTN BP DOC INDCD F/U DOC, G8752 MOST RECENT SYSTOLIC BP < 140MM HG, G8754 MOST RECENT DIASTOLIC BP < 90MM HG * Follow Up: 6 Months * Images: Billing Information: * Visit Code: 44545 Office Visit, Est Pt., Level 3. * Procedure Codes: G8420 BMI<30 AND >=22 CALC & DOCU. G8950 PREHTN/HTN BP DOC INDCD F/U DOC. G8752 MOST RECENT SYSTOLIC BP < 140MM HG. G8754 MOST RECENT DIASTOLIC BP < 90MM HG. * Electronic signature of Chuck Posada MD on 03/14/2025 at 09:45 AM EST Sign off status: Pending * Provider: Chuck Posada M.D. Date: 0 10/21/2024 Generated for Ricardo hadley/Wisam/Marcransmitting on: 1 05/14/2024 09:45 AM EST History and Physical Notes * HPI (History of Present Illness) Category Sub-Category Detail Notes Category Not es Constitutional She is at her goal weight and is considering going off the Ozempic HPI Patient is here today for Pt is here today for a 6 month check up. Pt sts she is doing well and has no concerns at this time Examination Category Sub-Category Detail Notes Category Not es Cardiology Heart sounds: RRR, normal S1, S2 Carotid upstroke: normal, no bruits Extremities: no leg edema Murmur, click , gallop: none General Appearance: pleasant, NAD. Affec t is good
[2025-03-10 20:00] LABS: Coronavirus 19, PCR Not Detected (NotDetected); Influenza A, PCR Not Detected (NotDetected); Influenza B, PCR Not Detected (NotDetected)
--- OUTSIDE RECORDS SUMMARY | 2025-03-14 09:46 | XMS_ITS | Patient Health Record ---
Author Organization [facility] Address [address] [facility] [address] [place] [id number] Care Team Providers Care Barker Operator Name Role Phone Chuck Posada Primary Care Provider Allergies Allergen (clinical drug ingredient) Drug/Non Drug Allergy documented on EMR Reaction Allergy Type Onset Date Status lisinopril Lisinopril Cough Drug Allergy Activ e Results Component Value Reference Range Notes P-Comprehensive Metabolic Pa norah (CMP) Reviewed date:10/27/2024 04:56:36 PM Interpretation:normal Performing Lab: Notes/Report: Test performed by [facility] [address] [place] [address] , [address], [place] [address] Bret Huynh MD, Tenterer CLIA: [id number] Sodium 141 135-145 mmol/L Potassium 3.5 3.5-5.3 [...] 107 Performing Lab: Notes/Report: Test performed by [facility] [address] [place] [address] [facility], [place] [address] Bret Huynh MD, Tenterer CLIA: [id number] Cholesterol 177 <200 mg/dL Triglycerides 67 <150 [...] Results: 107 Units: mg/dL % Change: -15% P-Potassium Reviewed date:04/23/2024 03:10:57 PM Interpretation:3.7 Performing Lab: Notes/Report: Test performed by [facility], [address] , [place] [address] Bret Huynh MD, Tenterer CLIA: [id number] Potassium 3.7 3.5-5.3 mmol/L Reason For Referral No Information Medications Medication SIG (Take, Route, Frequency, Duration) Notes Start Date End Date Status Etodolac 400 MG 1 tablet with food Orally Twice a day; Duration: 30 day(s) 11/21/2022 Not-Taking Semaglutide (2 MG/DOSE) 8 MG/3ML as directed Subcutaneous Not -Taking Pen [place] 16 31G X 8 MM as directed once a week 06/05/2023 Acti ve DULoxetine HCl 30 MG 1 capsule Orally On ce a day; Duration: 90 days Active Probiotic - as directed Orally Active Lisinopril-hydroCHLOROth iazide 10-12.5 MG 1 tab(s) orally once a day Not-Taking Fiber - as directed Orally A ctive Ozempic (0.25 or 0.5 MG/DOSE) 2 MG/3ML 0.5 mg Subcutaneous once a week; Duration: 28 days Active Melatonin 5 MG 1 tablet in the even ing Orally Once a day; Duration: 30 day(s) Active Potassium Chloride ER 10 MEQ 1 capsule with food Orally daily; Duration: 90 days Active Losartan Potassium-HCTZ 50-12.5 MG 1 tablet Orally Once a day; Duration: 90 days Active Immunizations Vaccine Route Administration Date Status Comme nts Tetanus Tdap-Adacel (over 7yrs) Unknown 03/26/2016 Administered Fluzone Quad (6months&older) IM Intramuscular 01/14/2020 Administered COVID 19 Pfizer Unknown 04/25/2021 Administered COVID 19 Moderna Unknown 05/12/2020 Administered COVID 19 Moderna Unknown 06/13/2020 Administered Problems Problem Type SNOMED Code ICD Code Onset Dates Problem Status W/U Status Risk Notes Problem Type 2 diabetes mellitus (83193707) Type 2 diabetes mellitus (E11.9) Active confirmed Problem Anxiety (13864324) Anxiety (F41.9) Active confirmed Problem Environmental allergy (875875809) Environmental allergies (Z91.048) Active confirmed Problem Generalized anxiety disorder (68990725) Generalized anxiety disorder (F41.1) Active confirmed Problem Hyperlipidemia due to type 2 diabetes mellitus (disorder) (242719455592534) Hyperlipidemia associated with type 2 diabetes mellitus (E11.69) Active confirmed Problem HBP - High blood pressure (22146450) HBP (high blood pressure) (I10) Active confirmed Problem Dyslipidemia (440513716) Dyslipidemia (E78.5) Active confirmed Problem Irritable bowel syndrome characterized by constipation (735748059) Irritable bowel syndrome with constipation (K58.1) Active confirmed Problem Allergic rhinitis (07515981) Allergic rhinitis, unspecified seasonality, unspecified trigger (J30.9) Active confirmed Vital Signs Heart Rate 74 /min 10/21/2024 Blood pressure diastolic 68 mm Hg 10/21/2024 Height 64.25 in 10/21/2024 Blood pressure systolic 120 mm Hg 10/21/2024 Weight 154.4 lbs 10/21/2024 BMI 26.29 kg/m2 10/21/2024 Encounters Encounter Location Date Provider Diagnosis [facility] [facility] [address] [place] [id number] 04/22/2024 R Navarro Posada Hypokalemia E87.6 ; HBP (high blood pressure) I10 ; Generalized anxiety disorder F41.1 and Type 2 diabetes mellitus E11.9 [facility] [address] [place] [id number] 10/21/2024 R Navarro Posada Dyslipidemia E78.5 ; HBP (high blood pressure) I10 ; Prediabetes R73.03 ; Encounter for weight management Z76.89 ; Generalized anxiety disorder F41.1 and BMI 26.0-26.9,adult Z68.26 [facility] [address] [place], [place] [id number] 04/23/2024 Chuck Posada [facility] [address] [place], [place] [id number] 07/30/2024 Chuck Posada Type 2 diabetes mellitus E11.9 [facility] [address] [place], [place] [id number] 10/27/2024 R Navarro Barrerafleet [facility] [address] [place], [place] [id number] 11/01/2024 Chuck Briceño Swetha [facility] [address] [place], [place] [id number] 01/24/2025 Chuck Posada Assessments Encounter Date Diagnosis (ICD Code) Assessment Notes Treatment Notes Treatment Clinical Notes Section Notes 04/22/2024 Hypokalemia (ICD-10 - E87.6) 04/22/2024 HBP (high blood pressure) (ICD-10 - I10) 07/30/2024 Type 2 diabetes mellitus (ICD-10 - E11.9) 10/21/2024 HBP (high blood pressure) (ICD-10 - I10) 10/21/2024 Dyslipidemia (ICD-10 - E78.5) 10/21/2024 Prediabetes (ICD-10 - R73.03) 04/22/2024 Generalized anxiety disorder (ICD-10 - F41.1) 04/22/2024 Type 2 diabetes mellitus (ICD-10 - E11.9) 10/21/2024 Encounter for weight management (ICD-10 - Z76.89) Discussed importance of maintaining diet and exercise regimen while going off the Ozempic 10/21/2024 Generalized anxiety disorder (ICD-10 - F41.1) 10/21/2024 BMI 26.0-26.9,adult (ICD-10 - Z68.26) Plan Of Treatment Next Appt Details Provider Name:Chuck Rojas, 04/21/2025 04:00:00 PM, [address], [address], [place], [id number], Insurance Providers Payer Name Payer Address Payer Phone Subscriber Number Group Number Insured Name Patient Relationship to Insured Coverage Start Date Coverage End Date [employer] [address] [place] [address] [id number] MARNIE MARTINEZ Self - patient is the insured Medications Administered Medication Instructions Date of Administration Dosage Notes Dexamethasone 11/08/2020 1 mL Medical (General) History Medical History History ICD Code Anxiety disorder Constipation predominant irritable bowel syndrome Seasonal allergies eczema/Psoriasis 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 07/[address] [facility] 01/18/18 Partial [facility]sterectomy-[facility] 2011
--- OUTSIDE RECORDS SUMMARY | 2025-03-14 09:46 | XMS_ITS | Data Portability ---
Author Organization [facility] [place] [facility] Address [address] [facility] [address] [place] [address] Care Team Providers Care Photography Colorist Name Role Phone AZAR PEREZ Primary Care Provider [phone] GREGORY RUIZ Automotive Collision Repair Instructor Assessment No assessment recorded. Plan of Treatment Reminders Order Date Submit Date Provider Last Modified By Organization Details Last Modified Time Details Appointments None recorded. Lab None recorded. Referral None recorded. Procedures None recorded. Surgeries None recorded. Imaging None recorded. Medication Orders clobetasol 0.05 % topical ointment 2024 025 [facility], [address] [place], [address], 5 10:03:42 Patient TargetsNo targets recorded. Patient InstructionsNo instructions recorded. Reason for Referral None Reported. Medical Equipment None Reported. Allergies No known drug allergies Medications Name Sig Start Date Stop Date Status Note LastModified by Organization Details LastModified Time ketoconazole 2 % shampoo APPLY TO SCALP 3 TIMES A WEEK IN THE SHOWER DIRECTED. LET SIT FOR 5MIN. BEFORE RINSING active Not Available Not Available No t Available clobetasol 0.05 % topical ointment APPLY A THIN LAYER TO THE AFFECTED AREA(S) BY TOPICAL ROUTE 2 TIMES PER DAY FOR 2 WEEKS THEN TWICE PER WEEK. NOT FOR THE FACE, ARMPITS, OR GROIN. 2024 active Not Available Not Available Not Avai lable potassium acetate active Not Available Not Available Not Available Fish Oil active Not Available Not Avai lable Not Available losartan active Not Available Not Avai lable Not Available fiber active Not Available Not Availa ble Not Available duloxetine active Not Available Not Av ailable Not Available Ozempic active Not Available Not Avail able Not Available Womens Multivitamin Hi Potency active Not Available Not Available N ot Available Vitals None Recorded Social History Question Answer Notes LastModified by Organizat ion Details LastModified Time Tobacco Smoking Status Never Smoker Kimberly Ceron [facility] 05/24/2024 08:42:36 Sunscreen Use? Yes [email or web address] Informatio n not available 05/24/2024 Tanning Bed Use Yes [email or web address] Informati on not available 05/24/2024 What Was The Date Of Your Most Recent Tobacco Screening? 05/24/2024 Information not available 05/24/2024 Sex: Unknown Functional Status Question Answer Note LastModified by Organizat ion Details LastModified Time What is your level of alcohol consumption? Occasional [email or web address] Information not available 05/24/2024 Mental Status None recorded. Family History Nothing Reported. Medical History No medical history recorded. Gynecological HistoryNo gynecological history recorded. Obstetrics History GPAL:G 0 P 0 0 0 0 Past Encounters Encounter ID Performer Location Encounter Start Date Encounter Closed Date Diagnosis/Indication Diagnosis SNOMED-CT Code Diagnosis ICD10 Code Diagnosis IMO Codes Diagnosis Note [id number] CALLY BROOKS [address] [phone] 05/24/2024 08:28:15 05/24/2024 09:13:50 Allergic contact dermatitis 108413515 L23.89 The nature of the diagnosis was discussed. acute uncomplica anatoliy.Tony Alexander MD examined the patient.Ca n develop allergies over time. Rec OTC Vanicream products and OTC Free and Clear shampoo and conditione r.Pt had been using gel nails on her fingers (the nail canadian active ingredient s include: cellulose acetate butyrate, hydroxyeth yl methacryla te (FERNIE), isobornyl acrylate). Most likely the gel nail canadian is the culprit. Stop gel nails.Sham poo also may be culprit. Rec to use OTC Vanicream shampoo and conditione r instead. Rx prescribed for Rx Clobetasol 0.05% topical ointment BID x 2 wks then twice per week. SE reviewed. LT use discussed. Pt to call in 3 months if no improvemen t - patch testing in reserve. Health Concerns Section Related Observation LastModified by Organization Detai ls LastModified Time None Recorded Concern Status LastModified by Organization Details LastModified Time None Recorded Advance Directives Directive None Recorded Payers Insurance Date Sequence Insurance Name Policy Number Policy Yusuf Covered Member ID Yusuf Member ID Guarantor Name 05/24/2024 1 [place] [id number] June Simon [id number] June Simon Notes Date Note Type Note Provider Name and Address Organization Details Recorded Time 05/24/2024 text/html ROS as noted in the HPI Rashduration: 1 monthlocation: neck, bilateral handsprior tx: aquaphor, cortisone, eczema itch relief creamreports: It is starting to spread down to my shoulder. It is very itch. --------- use otc olay body soap- no sns nails - gel nail canadian that includes acrylates (after looking up ingredients).- denies any crafting with glues.- works at [employer] (sticky notes)- denies essential oil, candles.- wears perfume on clothes.- CALLY BROOKS [address] [place], [address], [facility] 05/24/2024 12:27:17 OBGyn Episode No OBEpisode recorded.
== END 2025-03-10 23:59 ==
LOC: LAB.DROPOF 03-14 09:34
PROVIDERS: PCP Family Medicine; Visit Provider Student in an Organized Health Care Education/Training Program
DX: J06.9 Acute upper respiratory infection, unspecified (principal)
CPT/HCPCS: 87636

== ENCOUNTER 2025-04-20 08:53 | Outpatient (RCR) | payer BC, SELFPAY | END 2025-04-20 23:59 | disposition home or self-care (01) | LOC: PT 08:53 | PROVIDERS: PCP Family Medicine; Visit Provider Physician Assistant | DX: M47.9 Spondylosis, unspecified (principal) | CPT/HCPCS: 97161 ==